=== PATIENT | male | born 1990 | race Caucasian/White ===

== ENCOUNTER 2017-05-29 19:30 | Emergency (ER) | payer MEDICAID ==
[2017-05-29] MEDS ORDERED: SODIUM CHLORIDE 0.9% 1,000 ML IV ONE (20:24)
[2017-05-29] MEDS ORDERED: ASPIRIN CHEW 81 MG TABLET PO STA (20:24)
[2017-05-29] MEDS ORDERED: ASPIRIN CHEW 81 MG TABLET ONE (20:31)
[2017-05-29 20:36] LABS: BASOPHILS % (AUTO) 0.3 %; EOSINOPHILS # (AUTO) 0.1 10^3/uL (0.0-0.7); EOSINOPHILS % (AUTO) 1.3 %; HCT - HEMATOCRIT 48.9 % (42.0-52.0); HGB - HEMOGLOBIN 16.5 g/dL (14.0-18.0); LYMPHOCYTES # (AUTO) 3.7 10^3/uL (1.5-3.5); LYMPHOCYTES % (AUTO) 41.9 %; MEAN CORPUSCULAR HEMOGLOBIN 30.1 pg (27.0-31.0); MEAN CORPUSCULAR HGB CONC 33.8 g/dL (32.0-36.0); MEAN CORPUSCULAR VOLUME 89.3 fL (80.0-94.0); MONOCYTES # (AUTO) 0.5 10^3/uL (0.0-1.0); MONOCYTES % (AUTO) 5.4 %; NEUTROPHILS # (AUTO) 4.5 10^3/uL (1.5-6.6); NEUTROPHILS % (AUTO) 51.1 %; NUCLEATED RED BLOOD CELLS AUTO 0.1 /100WBC; RED BLOOD COUNT 5.47 10^6/uL (4.70-6.10); UNCORRECTED WHITE BLOOD COUNT 8.9 x10^3/uL; WHITE BLOOD COUNT 8.9 x10^3/uL (4.8-10.8)
--- NOTE | 2017-05-29 20:39 | XRAY Preliminary Report ---
Exam: XR CHEST 2 VIEW PA/LAT IMPRESSION: Normal two-view chest radiograph. [facility] SITE ID: [id number]
--- NOTE | 2017-05-29 20:42 | XRAY Report ---
EXAM: CHEST RADIOGRAPHY EXAM DATE: 05/29/2017 08:21 PM. CLINICAL HISTORY: Chest pain. COMPARISON: None. TECHNIQUE: 2 views. FINDINGS: Lungs/Pleura: No focal opacities are evident. No pleural effusion or pneumothorax. Mediastinum: Normal cardiomediastinal contour. Other: The bones are normal. IMPRESSION: Normal two-view chest radiograph. [facility] Referring Provider Line: [phone] SITE ID: [id number]
[2017-05-29 20:46] LABS: CALCIUM 9.4 mg/dL (8.5-10.3); CREATININE 1.1 mg/dL (0.6-1.2); POTASSIUM 3.7 mmol/L (3.5-5.0); PT - PROTHROMBIN TIME 10.8 secs (9.9-12.6)
[2017-05-29 20:54] LABS: D-DIMER < 200.0 ng/mL (200.0-255.0)
[2017-05-29 21:00] LABS: PARTIAL THROMBOPLASTIN TIME 29.8 secs (24.9-33.3)
--- NOTE | 2017-05-29 22:10 | CT Preliminary Report ---
Exam: CT HEAD W/O IMPRESSION: No acute or focal intracranial abnormality. [facility] SITE ID: [id number]
--- NOTE | 2017-05-29 22:12 | CT Report ---
EXAM: CT HEAD EXAM DATE: 05/29/2017 09:47 PM. CLINICAL HISTORY: Left sided arm and leg tingling. COMPARISON: None. TECHNIQUE: Multiaxial CT images were obtained from the foramen magnum to the vertex. Reformats: Coron al. IV contrast: None. In accordance with CT protocol optimization, one or more of the following dose reduction techniques w ere utilized for this exam: automated exposure control, adjustment of mA and/or KV based on patient s ize, or use of iterative reconstructive technique. FINDINGS: Parenchyma: No intraparenchymal hemorrhage. No evidence of mass, midline shift, or CT findings of inf arction. Salazar-white differentiation is distinct. Extraaxial Spaces: Normal for age. No subdural or epidural collections identified. Ventricles: Normal in size and position. Sinuses and Orbits: Imaged paranasal sinuses, orbits, and mastoids show no significant abnormality. Bones: No evidence of fracture or calvarial defect. Other: None. IMPRESSION: No acute or focal intracranial abnormality. [facility] Referring Provider Line: [phone] SITE ID: [id number]
--- NOTE | 2017-05-29 22:58 | ED Physician Documentation ---
History of Present Illness - Stated complaint Stated Complaint: CHEST PX - Chief complaint Chief Complaint: Cardiac - History obtained from History obtained from: Patient (pt is here for evaluation of chest pain, shortness of breath and left sided weakness. he states that it started approx 45 min to 1 hour prior to arrival. states that he has had pericarditis in the past, and this feels similar to that. he states that he is also short of breath. he also states that his chest pain has improved somewhat from when it started but his left side is not tingling and numb.) Review of Systems Constitutional: denies: Fever, Chills Nose: denies: Congestion, Sinus pressure / pain Throat: denies: Sore throat Cardiac: reports: Chest pain / pressure. denies: Palpitations, Pedal edema Respiratory: reports: Dyspnea. denies: Cough, Hemoptysis, Wheezing GI: denies: Nausea, Vomiting : denies: Frequency Skin: denies: Rash, Lesions Musculoskeletal: denies: Extremity pain, Extremity swelling, Joint swelling Neurologic: reports: Focal weakness (left side of face, left arm and left leg), Numbness (left side of face, left arm and left leg.). denies: Syncope, Altered mental status, Headache, Head injury, LOC PD PAST MEDICAL HISTORY - Past Medical History Past Medical History: Yes Other Past Medical History: Pericarditis 03/2017 - Past Surgical History Past Surgical History: No - Present Medications Home Medications: Ambulatory Orders Medication Instructions Recorded Confirmed No Known Home Medications [No 05/29/17 05/29/17 Known Home Medications] - Allergies Allergies/Adverse Reactions: Allergies Allergy/AdvReac Type Severity Reaction Status Date / Time No Known Drug Allergies Allergy Verified 05/29/17 19:37 - Social History Does the pt smoke?: No Smoking Status: Never smoker Does the pt drink ETOH?: Yes Does the pt have substance abuse?: No - POLST Patient has POLST: No PD ED PE NORMAL - Vitals Vital signs reviewed: Yes - General General: Alert and oriented X 3, No acute distress, Well developed/nourished - HEENT HEENT: Atraumatic, Moist mucous membranes - Neck Neck: No bony TTP - Cardiac Cardiac: RRR, No murmur, No gallop, No rub - Respiratory Respiratory: No respiratory distress - Abdomen Abdomen: Normal bowel sounds, Soft, Non tender, Non distended - Derm Derm: Normal color, Warm and dry, No rash - Extremities Extremities: No deformity, No tenderness to palpate, No edema - Neuro Neuro: Alert and oriented X 3, transformation consultant 2-12 intact, No motor deficit (full strength 5/5 UE and LE bilateral ), Normal speech. No: No sensory deficit (reports decreased senstion to light touch to his left arm from top of shoulder to hand in all areas, in his left leg from the greater troch to the toes in all areas and on the left side of his face. ) Eye Opening: Spontaneous Motor: Obeys Commands Verbal: Oriented GCS Score: 15 - Psych Psych: Normal mood, Normal affect Results - Vitals Vitals: Vital Signs - 24 hr 05/29/17 05/29/17 05/29/17 19:34 19:42 20:12 Temperature 35.9 C L Heart Rate 74 81 73 Respiratory 24 26 H 20 Rate Blood Pressure 154/95 H 137/85 H 132/86 H O2 Saturation 100 100 100 05/29/17 05/29/17 05/29/17 20:14 21:03 21:32 Temperature 36.4 C L Heart Rate 58 L 90 Respiratory 17 18 Rate Blood Pressure 129/73 119/64 O2 Saturation 99 100 05/29/17 05/29/17 22:06 22:35 Temperature Heart Rate 75 53 L Respiratory 18 18 Rate Blood Pressure 124/72 119/74 O2 Saturation 98 97 Oxygen O2 Source Room air - EKG (time done) 1935 Rate: Rate (enter#) Rhythm: NSR [place]: Normal Intervals: Normal VA QRS: Normal Ischemia: ST elevation c/w repol, Other (early repol ). No: Q waves - Labs Labs: Laboratory Tests 05/29/17 05/29/17 05/29/17 19:40 19:40 19:40 WBC 8.9 RBC 5.47 Hgb 16.5 Hct 48.9 MCV 89.3 MCH 30.1 MCHC 33.8 RDW 13.0 Plt Count 219 MPV 11.0 Neut # 4.5 Lymph # 3.7 H Harding # 0.5 Eos # 0.1 Baso # 0.0 Absolute Nucleated RBC 0.01 Nucleated RBC % 0.1 ESR 1 PT 10.8 INR 1.0 APTT 29.8 D-Dimer < 200.0 L Sodium Potassium Chloride Carbon Dioxide Anion Gap BUN Creatinine Estimated GFR (MDRD) Glucose Calcium Troponin I C-Reactive Protein 05/29/17 05/29/17 05/29/17 19:40 19:40 22:25 WBC RBC Hgb Hct MCV MCH MCHC RDW Plt Count MPV Neut # Lymph # [place] # Eos # Baso # Absolute Nucleated RBC Nucleated RBC % ESR PT INR APTT D-Dimer Sodium 136 Potassium 3.7 Chloride 102 Carbon Dioxide 27 Anion Gap 7.0 BUN 10 Creatinine 1.1 Estimated GFR (MDRD) 82 L Glucose 102 H Calcium 9.4 Troponin I < 0.04 < 0.04 C-Reactive Protein 1.5 H - Rads (name of study) CXR Radiology: Final report received Head CT Radiology: Final report received PD MEDICAL DECISION MAKING - ED course Complexity details: d/w patient ED course: pt with hx of pericarditis and finished treatment 3 weeks ago. labs and ECG and PE not C/W pericarditis. has the left sided symptoms and normal head CT. doubt this is a CVA because of his presentation, and his exam. His tingling does not fit any specific pattern because of where it starts on his arm and leg. he states that he does have "nerve" problems and he told me that his chiropractor told him "if you get one more concussion you will be paralyzed" We discussed his symptoms. we talked about NSAID's. Informed him that he needed to contact his primary care provider to discuss a consult to see a neurologist if his symptoms continue. Departure - Departure Disposition: 01 Home, Self Care Clinical Impression: Atypical chest pain, Paresthesias/numbness Condition: Good Instructions: ED Paraesthesias, ED Chest Pain Atypical Unkn Cause Follow-Up: primary, care provider [Other] Comments: recommend that you contact your primary care provider to discuss a consult to see neurology if your symptoms so not improve. Return to the ER for any new or worsening symptoms.
[2017-05-29 23:23] VITALS: BP 124/56
== END 2017-05-29 23:23 | disposition home or self-care (01) ==
LOC: ED 19:30
DX: R07.89 Other chest pain (principal); R20.0 Anesthesia of skin
CPT/HCPCS: 36415; 70450; 71020; 80048; 84484; 85025; 85379; 85610; 85651; 85730; 86140; 93005; 96360; 99284; A9270

== ENCOUNTER 2017-06-12 14:28 | Outpatient (CLI) | payer MEDICAID | END 2017-06-12 14:29 | disposition critical access hospital (66) | LOC: EMS 14:28 | PROVIDERS: ATTEND Surgery | DX: R45.851 Suicidal ideations (principal) | CPT/HCPCS: A0425; A0429 ==

== ENCOUNTER 2017-06-12 14:45 | Emergency (ER) | payer MEDICAID ==
[2017-06-12 14:52] VITALS: BP 163/94
[2017-06-12 15:16] LABS: HCT - HEMATOCRIT 50.3 % (42.0-52.0); MEAN CORPUSCULAR HGB CONC 33.9 g/dL (32.0-36.0); MEAN CORPUSCULAR VOLUME 88.5 fL (80.0-94.0); MEAN PLATELET VOLUME 9.9 fL (7.4-11.4); RED BLOOD COUNT 5.68 10^6/uL (4.70-6.10); RED CELL DISTRIBUTION WIDTH 12.9 % (12.0-15.0)
--- NOTE | 2017-06-12 15:18 | ED Physician Documentation ---
PD HPI MHE - Stated complaint Stated Complaint: MHE - Chief complaint Chief Complaint: MHE - History obtained from History obtained from: Patient, Family, EMS - History of Present Illness Primary symptom: Other (27-year-old gentleman with long history of depression, suicidal attempts including a serious one in 2010. We are approaching the two- year anniversary of his infant son's of SIDS and he was telling his family today that he loved them and then disappeared. He admits to suicidal ideation but no current plan. He has been drinking today.) Review of Systems Ten Systems: 10 systems reviewed and negative Constitutional: denies: Fever, Chills Ears: reports: Reviewed and negative Nose: reports: Reviewed and negative Throat: reports: Reviewed and negative PD PAST MEDICAL HISTORY - Past Medical History Cardiovascular: Other Psych: Depression Musculoskeletal: Other (chronic neck pain) Other Past Medical History: Feet pain, and pericaritis - Past Surgical History Past Surgical History: No - Present Medications Home Medications: Ambulatory Orders Medication Instructions Recorded Confirmed Aspirin 325 mg .ROUTE Q6HR 06/12/17 06/12/17 Cyclobenzaprine [Flexeril] 10 mg pe PO DAILY 06/12/17 06/12/17 Ibuprofen 1,200 mg pe PO Q6HR 06/12/17 06/12/17 - Allergies Allergies/Adverse Reactions: Allergies Allergy/AdvReac Type Severity Reaction Status Date / Time No Known Drug Allergies Allergy Verified 06/12/17 14:52 - Social History Does the pt smoke?: No Smoking Status: Never smoker Does the pt drink ETOH?: Yes Does the pt have substance abuse?: No - Family History Family history: reports: Non contributory - POLST Patient has POLST: No PD ED PE NORMAL - Vitals Vital signs reviewed: Yes - General General: Alert and oriented X 3, Other (Slightly slow to answer questions but coherent) - HEENT HEENT: PERRL, EOMI - Neck Neck: Supple, no meningeal sign, No bony TTP - Cardiac Cardiac: RRR, No murmur - Respiratory Respiratory: No respiratory distress, Clear bilaterally - Abdomen Abdomen: Normal bowel sounds, Soft, Non tender - Back Back: No CVA TTP, No spinal TTP - Derm Derm: Normal color, Warm and dry, No rash - Extremities Extremities: No edema, No calf tenderness / cord - Neuro Neuro: Alert and oriented X 3, Normal speech Eye Opening: Spontaneous Motor: Obeys Commands Verbal: Oriented GCS Score: 15 - Psych Psych: Other (Depressed mood, active suicidal ideation, no homicidal ideation or hallucinations.) Results - Vitals Vitals: Vital Signs - 24 hr 06/12/17 14:47 Temperature 36.4 C L Heart Rate 99 Respiratory 18 Rate Blood Pressure 163/94 H O2 Saturation 96 Oxygen O2 Source Room air - Labs Labs: Laboratory Tests 06/12/17 06/12/17 06/12/17 15:00 15:09 15:09 WBC 8.0 RBC 5.68 Hgb 17.0 Hct 50.3 MCV 88.5 MCH 30.0 MCHC 33.9 RDW 12.9 Plt Count 224 MPV 9.9 Sodium 139 Potassium 3.3 L Chloride 105 Carbon Dioxide 24 Anion Gap 10.0 BUN 11 Creatinine 1.0 Estimated GFR (MDRD) 91 Glucose 113 H Calcium 9.4 Total Bilirubin 1.1 H AST 30 ALT 38 Alkaline Phosphatase 92 Total Protein 8.4 H Albumin 4.7 Globulin 3.7 Albumin/Globulin Ratio 1.3 Lipase 16 L Salicylates < 6.0 Urine Opiates Screen NEGATIVE Ur Oxycodone Screen NEGATIVE Urine Methadone Screen NEGATIVE Ur Propoxyphene Screen NEGATIVE Acetaminophen < 10 L Ur Barbiturates Screen NEGATIVE Ur Tricyclics Screen NEGATIVE Ur Phencyclidine Scrn NEGATIVE Ur Amphetamine Screen NEGATIVE U Methamphetamines Scrn NEGATIVE U Benzodiazepines Scrn NEGATIVE Urine Cocaine Screen NEGATIVE U Cannabinoids Screen NEGATIVE Ethyl Alcohol 105.6 PD MEDICAL DECISION MAKING - ED course ED course: 27-year-old gentleman mildly intoxicated with vague suicidal ideation without plan. Social work could not evaluate today because of the timing, they were off shift before he was clinically sober. He was encouraged to stay overnight for evaluation in the morning, however he demanded to leave and his mom came and picked them up. She was okay with him leaving. He did sign AGAINST MEDICAL ADVICE and mom signed the form as well. Departure - Departure Disposition: 07 Against Medical Advice Clinical Impression: Depression Qualifiers: Depression Type: major depressive disorder Major depression recurrence: recurrent Active/Remission status: currently active Major depression episode severity: moderate Qualified Code(s): F33.1 - Major depressive disorder, recurrent, moderate
[2017-06-12 15:31] LABS: ALBUMIN/GLOBULIN RATIO 1.3 (1.0-2.2); BILIRUBIN,TOTAL 1.1 mg/dL (0.2-1.0); BUN - BLOOD UREA NITROGEN 11 mg/dL (6-20); CALCIUM 9.4 mg/dL (8.5-10.3); CARBON DIOXIDE - CO2 24 mmol/L (21-32); CHLORIDE 105 mmol/L (101-111); GFR - MDRD 91 (>89); GLUCOSE 113 mg/dL (70-100); LIPASE 16 U/L (22-51); POTASSIUM 3.3 mmol/L (3.5-5.0); SALICYLATE < 6.0 mg/dL; SODIUM 139 mmol/L (135-145); TOTAL PROTEIN 8.4 g/dL (6.7-8.2)
[2017-06-12 15:32] LABS: ACETAMINOPHEN < 10 ug/mL (10-30)
== END 2017-06-12 17:49 | disposition left against medical advice (07) ==
LOC: EDUNIT# → ED 14:45
DX: F33.1 Major depressive disorder, recurrent, moderate (principal); R45.851 Suicidal ideations; F10.129 Alcohol abuse with intoxication, unspecified; Y90.5 Blood alcohol level of 100-119 mg/100 ml
CPT/HCPCS: 36415; 80053; 80306; 80307; 80320; 80329; 83690; 99283

== ENCOUNTER 2017-06-22 10:12 | Outpatient (CLI) | payer MEDICAID ==
[2017-06-22 14:21] LABS: BASOPHILS % (AUTO) 0.4 %; EOSINOPHILS # (AUTO) 0.2 10^3/uL (0.0-0.7); EOSINOPHILS % (AUTO) 3.3 %; HCT - HEMATOCRIT 48.4 % (42.0-52.0); HGB - HEMOGLOBIN 16.4 g/dL (14.0-18.0); LYMPHOCYTES # (AUTO) 2.2 10^3/uL (1.5-3.5); LYMPHOCYTES % (AUTO) 33.4 %; MEAN CORPUSCULAR HEMOGLOBIN 30.3 pg (27.0-31.0); MEAN CORPUSCULAR HGB CONC 33.8 g/dL (32.0-36.0); MEAN CORPUSCULAR VOLUME 89.8 fL (80.0-94.0); MEAN PLATELET VOLUME 10.6 fL (7.4-11.4); MONOCYTES # (AUTO) 0.3 10^3/uL (0.0-1.0); MONOCYTES % (AUTO) 5.1 %; NEUTROPHILS # (AUTO) 3.9 10^3/uL (1.5-6.6); NEUTROPHILS % (AUTO) 57.8 %; RED BLOOD COUNT 5.39 10^6/uL (4.70-6.10); UNCORRECTED WHITE BLOOD COUNT 6.7 x10^3/uL; WHITE BLOOD COUNT 6.7 x10^3/uL (4.8-10.8)
[2017-06-22 14:36] LABS: HEMOGLOBIN A1C 0.59 g/dL
[2017-06-22 14:41] LABS: ALBUMIN/GLOBULIN RATIO 1.4 (1.0-2.2); BILIRUBIN,TOTAL 1.3 mg/dL (0.2-1.0); BUN - BLOOD UREA NITROGEN 11 mg/dL (6-20); CALCIUM 9.6 mg/dL (8.5-10.3); CARBON DIOXIDE - CO2 26 mmol/L (21-32); CHLORIDE 105 mmol/L (101-111); CHOLESTEROL 204 mg/dL; GFR - MDRD 91 (>89); GLUCOSE 94 mg/dL (70-100); HDL CHOLESTEROL 41 mg/dL; LDL/HDL RATIO 3.5 (<3.6); POTASSIUM 3.9 mmol/L (3.5-5.0); SODIUM 139 mmol/L (135-145); TOTAL PROTEIN 8.1 g/dL (6.7-8.2); TRIGLYCERIDES 101 mg/dL; VLDL CHOLESTEROL 20 mg/dL
== END 2017-06-22 23:59 ==
LOC: LAB.N 10:12
PROVIDERS: ATTEND Physician Assistant Medical
DX: E16.2 Hypoglycemia, unspecified (principal); R03.0 Elevated blood-pressure reading, without diagnosis of hypertension; I25.2 Old myocardial infarction; E78.70 Disorder of bile acid and cholesterol metabolism, unspecified; M54.5 Low back pain; R53.83 Other fatigue
CPT/HCPCS: 36415; 80053; 80061; 83036; 84443; 85025

== ENCOUNTER 2017-08-03 13:54 | Emergency (ER) | payer MEDICAID ==
[2017-08-03 14:13] VITALS: BP 148/87
== END 2017-08-03 15:38 | disposition left against medical advice (07) ==
LOC: ED 13:54
DX: Z53.21 Procedure and treatment not carried out due to patient leaving prior to being seen by health care provider (principal)

== ENCOUNTER 2017-08-19 12:00 | Outpatient (CLI) | payer MEDICAID ==
--- NOTE | 2017-08-19 15:58 | XRAY Report ---
TWO VIEW LUMBAR SPINE: 08/19/2017 CLINICAL INDICATION: Lumbar back pain. FINDINGS: AP, lateral views of the lumbar spine demonstrate normal height and alignment of the vertebral bodies. The disk spaces are preserved. The bowel gas pattern is normal. IMPRESSION: NORMAL LUMBAR SPINE. TD: 08/19/2017 15:57
== END 2017-08-19 12:01 | disposition home or self-care (01) ==
LOC: DI 12:00
PROVIDERS: ATTEND Physician Assistant Medical
DX: M54.5 Low back pain (principal)
CPT/HCPCS: 72100

== ENCOUNTER 2018-02-15 14:55 | Emergency (ER) | payer MEDICAID ==
[2018-02-15] MEDS ORDERED: DEXAMETHASONE 10 MG/ML VIAL PO STA (15:44)
[2018-02-15] MEDS ORDERED: KETOROLAC 60 MG/2 ML VIAL IM STA (15:45)
--- NOTE | 2018-02-15 16:05 | ED Physician Documentation ---
PD HPI BACK PAIN - Stated complaint Stated Complaint: LOWER BACK PX/BILAT LEG PX/RT TOE NUMBNESS - Chief complaint Chief Complaint: Back Pain - History obtained from History obtained from: Patient - History of Present Illness Timing - onset: How many weeks ago (1) Timing - duration: Weeks (1) Timing - details: Still present Location: Lower, Right Quality: Pain Associated symptoms: Numbness (right leg). No: Fever, Weakness, Incontinent of urine Worsened by: Movement, Lifting Similar symptoms before: No diagnosis - Additional information Additional information: The patient is a 27-year-old male who presents with lower back pain radiating down both legs, more on the right than the left. He reports numbness in his toes. He denies any specific injury. The pain has been waxing and waning for the past week. He denies fever or urinary incontinence. He denies history of similar symptoms in the past. Review of Systems Constitutional: denies: Fever Nose: denies: Congestion Respiratory: denies: Dyspnea GI: denies: Abdominal Pain, Nausea, Vomiting : denies: Dysuria, Incontinent Skin: denies: Rash Musculoskeletal: reports: Back pain. denies: Neck pain Neurologic: reports: Numbness (In his toes bilaterally.). denies: Focal weakness, Headache PD PAST MEDICAL HISTORY - Past Medical History Cardiovascular: Other Psych: Depression Musculoskeletal: Other - Past Surgical History Past Surgical History: No - Present Medications Home Medications: Ambulatory Orders Medication Instructions Recorded Confirmed Aspirin 325 mg .ROUTE Q6HR 06/12/17 06/12/17 Cyclobenzaprine [Flexeril] 10 mg pe PO DAILY 06/12/17 06/12/17 Ibuprofen 1,200 mg pe PO Q6HR 06/12/17 06/12/17 Cyclobenzaprine [Flexeril] 10 mg PO TID PRN #20 tablet 02/15/18 traMADol [Ultram] 50 mg PO Q4-6H #20 tablet 02/15/18 - Allergies Allergies/Adverse Reactions: Allergies Allergy/AdvReac Type Severity Reaction Status Date / Time No Known Drug Allergies Allergy Verified 06/12/17 14:52 - Social History Does the pt smoke?: No Smoking Status: Never smoker Does the pt drink ETOH?: Yes Does the pt have substance abuse?: No - POLST Patient has POLST: No PD ED PE NORMAL - Vitals Vital signs reviewed: Yes (initially hypertensive.) - General General: Alert and oriented X 3, Well developed/nourished - HEENT HEENT: Atraumatic - Neck Neck: No bony TTP - Cardiac Cardiac: RRR - Respiratory Respiratory: No respiratory distress - Abdomen Abdomen: Soft, Non tender - Back Back: No CVA TTP, No spinal TTP, Other (Tenderness to palpation in the paralumbar musculature bilaterally. No tenderness to palpation along the spinous processes.) - Derm Derm: No rash - Extremities Extremities: No edema, No calf tenderness / cord, Other (Straight leg raise test is negative bilaterally.) - Neuro Neuro: Alert and oriented X 3, No motor deficit, No sensory deficit, Other (No sensory deficit is detected in the lower extremities. Deep tendon reflexes are 2+ and equal bilaterally at the patellar and Achilles tendons.) Results - Vitals Vitals: Oxygen O2 Source Room air PD MEDICAL DECISION MAKING - ED course Complexity details: reviewed results, re-evaluated patient, considered differential, d/w patient ED course: The patient's presentation is most consistent with acute lumbar strain. His presentation does not suggest epidural abscess, cauda equina syndrome, or spinal stenosis. Treatment in the emergency department included administration of ketorolac 60 mg IM and dexamethasone 10 mg orally. He is being discharged with prescriptions for Flexeril and for tramadol, 20 tablets. I discussed with him expected course of illness, symptomatic treatment and outpatient follow-up, as well as potentially worrisome signs or symptoms that should prompt reevaluation in the emergency department. - Sepsis Event Vital Signs: Oxygen O2 Source Room air Departure - Departure Disposition: 01 Home, Self Care Clinical Impression: Back pain Qualifiers: Back pain location: low back pain Chronicity: acute Back pain laterality: right Sciatica presence: without sciatica Qualified Code(s): M54.5 - Low back pain Condition: Stable Instructions: ED Low Back Pain Injury Follow-Up: Cecil Mitchell PA-C [Primary Care Provider] - Prescriptions: Cyclobenzaprine [Flexeril] 10 mg PO TID PRN #20 tablet PRN Reason: Spasms traMADol [Ultram] 50 mg PO Q4-6H #20 tablet Comments: Apply ice pack to your lower back intermittently for the next 3 or 4 days. You can use Flexeril as prescribed if needed for muscle spasms. You can use ibuprofen, up to 800 mg 3 times daily for its anti-inflammatory effect. You can use tramadol as prescribed if needed for pain. Let pain be your guide to activity level. Follow up with your primary physician within 2 weeks. Call to schedule an appointment. Return to the emergency department if you develop increasing back pain, urinary incontinence, increasing numbness or weakness, or otherwise worsening symptoms. Discharge Date/Time: 02/15/18 16:16
[2018-02-15 16:17] VITALS: BP 130/96
== END 2018-02-15 16:16 | disposition home or self-care (01) ==
LOC: ED 14:55
DX: M54.5 Low back pain (principal); Z79.82 Long term (current) use of aspirin
CPT/HCPCS: 99283

== ENCOUNTER 2018-06-09 15:37 | Outpatient (CLI) | payer MEDICAID ==
--- NOTE | 2018-06-09 17:00 | MRI Report ---
Reason: KNEE PAIN,LEFT,CHRONIC Procedure Date: 06/09/2018 Accession Number: [id number] / [id number] Procedure: MRI - Knee LT W/O CPT Code: FULL RESULT: EXAM: LEFT KNEE MRI WITHOUT CONTRAST EXAM DATE: 06/09/2018 04:23 PM. CLINICAL HISTORY: Chronic left knee pain. Snowboarding accident 2016. COMPARISON: KNEE 3 VIEW LT 05/31/2018 12:27 PM. TECHNIQUE: Multiplanar, multisequence T1-weighted and fluid-sensitive sequences of the knee without contrast. Other: None. FINDINGS: Bones: No fractures or subluxations. No marrow edema. No bone lesions. Articular Cartilage: Unremarkable. Medial Meniscus: The medial meniscus is intact. Lateral Meniscus: The lateral meniscus is intact. Cruciate Ligaments: The anterior and posterior cruciate ligaments are intact. Collateral Ligaments: The medial collateral and lateral collateral ligamentous structures are intact. Tendons: The quadriceps, patellar, semimembranosus, and popliteus tendons are unremarkable. Musculature: No edema or fatty atrophy. Other: Small joint fluid lateral patellar recess. No popliteal cyst. No loose bodies. The medial and lateral retinacula are intact. The subcutaneous tissues and fat pads are unremarkable. IMPRESSION: No MRI abnormalities in the knee. [facility] MUSCULOSKELETAL RADIOLOGY SECTION
== END 2018-06-09 15:38 | disposition home or self-care (01) ==
LOC: DI 15:37
PROVIDERS: ATTEND Physician Assistant Medical
DX: M25.562 Pain in left knee (principal)

== ENCOUNTER 2018-06-14 11:54 | Outpatient (CLI) | payer MEDICAID | END 2018-06-14 11:55 | disposition critical access hospital (66) | LOC: EMS 11:54 | PROVIDERS: ATTEND Surgery | DX: M54.5 Low back pain (principal) | CPT/HCPCS: A0425; A0429; A0999 ==

== ENCOUNTER 2018-06-14 12:10 | Emergency (ER) | payer MEDICAID ==
--- NOTE | 2018-06-14 12:58 | ED Physician Documentation ---
PD HPI BACK PAIN - Stated complaint Stated Complaint: Back pain - Chief complaint Chief Complaint: Back Pain - History obtained from History obtained from: Patient - History of Present Illness Timing - onset: Today Timing - duration: Hours Timing - details: Abrupt onset, Still present Location: Mid, Lower, Right Quality: Pain, Spasm. No: Aching, Throbbing Associated symptoms: No: Fever, Weakness, Numbness Worsened by: Movement. No: Twisting, Palpation Contributing factors: No: Lifting, Twisting Similar symptoms before: No diagnosis Recently seen: Clinic (He has been to his primary care recently for recurrent upper abdominal pain which radiates into the back. He was started on omeprazole a week ago and had an upper abdominal ultrasound scheduled which was planned for this afternoon. He is also had chronic recurrent low back pain which has been hurting more with range of motion over the last week or so. Today he had a significant worsening of the upper thoracic pain area which was unrelenting and not improved with rest. It was different than prior similar pains.) Review of Systems Constitutional: denies: Fever, Chills Nose: denies: Rhinorrhea / runny nose, Congestion Throat: denies: Sore throat Respiratory: denies: Cough GI: reports: Abdominal Pain (upper abd intermittently, worse after eating.), Nausea. denies: Vomiting, Constipation, Diarrhea : denies: Dysuria, Frequency Skin: denies: Rash, Lesions Musculoskeletal: reports: Back pain Neurologic: denies: Generalized weakness, Focal weakness, Numbness, Near syncope PD PAST MEDICAL HISTORY - Past Medical History Cardiovascular: Other Respiratory: None Neuro: None Endocrine/Autoimmune: None Psych: Depression Musculoskeletal: Chronic back pain, Other - Past Surgical History Past Surgical History: No - Present Medications Home Medications: Ambulatory Orders Medication Instructions Recorded Confirmed Aspirin 325 mg .ROUTE Q6HR 06/12/17 06/12/17 Cyclobenzaprine [Flexeril] 10 mg pe PO DAILY 06/12/17 06/12/17 Ibuprofen 1,200 mg pe PO Q6HR 06/12/17 06/12/17 Cyclobenzaprine [Flexeril] 10 mg PO TID PRN #20 tablet 02/15/18 traMADol [Ultram] 50 mg PO Q4-6H #20 tablet 02/15/18 Hydrocodone/Acetaminophen [[place] 1 each PO Q6H PRN #20 tablet 06/14/18 5-325 Tablet] Ondansetron HCl [Zofran] 4 mg PO Q6H PRN #30 tablet 06/14/18 Sucralfate [Carafate] 1 gm PO TID #20 tablet 06/14/18 - Allergies Allergies/Adverse Reactions: Allergies Allergy/AdvReac Type Severity Reaction Status Date / Time No Known Drug Allergies Allergy Verified 06/14/18 12:13 - Social History Does the pt smoke?: No Smoking Status: Never smoker Does the pt drink ETOH?: Yes Does the pt have substance abuse?: No - POLST Patient has POLST: No PD ED PE NORMAL - Vitals Vital signs reviewed: Yes - General General: Alert and oriented X 3, Well developed/nourished, Other (appears in pain) - HEENT HEENT: Pharynx benign - Neck Neck: Supple, no meningeal sign, No adenopathy - Cardiac Cardiac: RRR, No murmur - Respiratory Respiratory: Clear bilaterally - Abdomen Abdomen: Normal bowel sounds, Soft, Non distended, No organomegaly, Other (some tenderness upper abd without guarding. No percussion nor rebound. ) - Male Male : Deferred - Rectal Rectal: Deferred - Back Back: No CVA TTP (no muscular tenderness. Back pain worse with ROM, somewhat guarded motion lying on cart. ), No spinal TTP - Derm Derm: Normal color, Warm and dry - Extremities Extremities: No tenderness to palpate, Normal ROM s pain - Neuro Neuro: Alert and oriented X 3, No motor deficit, Normal speech Eye Opening: Spontaneous Motor: Obeys Commands Verbal: Oriented GCS Score: 15 Results - Vitals Vitals: Vital Signs - 24 hr 06/14/18 12:13 Temperature 36.6 C Heart Rate 90 Respiratory 16 Rate Blood Pressure 128/64 O2 Saturation 95 Oxygen O2 Source Room air - Labs Labs: Laboratory Tests 06/14/18 06/14/18 13:25 13:25 WBC 7.0 RBC 5.53 Hgb 17.1 Hct 49.8 MCV 90.0 MCH 30.9 MCHC 34.3 RDW 13.5 Plt Count 219 MPV 10.2 Neut # (Auto) 3.7 Lymph # (Auto) 2.6 [place] # (Auto) 0.5 Eos # (Auto) 0.1 Baso # (Auto) 0.0 Absolute Nucleated RBC 0.00 Nucleated RBC % 0.0 Sodium 136 Potassium 3.5 Chloride 106 Carbon Dioxide 25 Anion Gap 5.0 L BUN 8 Creatinine 1.1 Estimated GFR (MDRD) 81 L Glucose 91 Calcium 9.1 Total Bilirubin 0.7 AST 37 ALT 57 Alkaline Phosphatase 95 Total Protein 8.3 H Albumin 4.6 Globulin 3.7 Albumin/Globulin Ratio 1.2 Lipase 18 L - Rads (name of study) abd/pelvic CT Radiology: Prelim report reviewed (no acute abnormality. ), EMP read contemporaneously, See rad report PD MEDICAL DECISION MAKING - ED course Complexity details: reviewed results (Normal CT without any signs of gallbladder process. Blood tests show normal liver and pancreatic enzymes. There are no kidney stones on CT. He may still have some gastritis or duodenitis based on his prior symptoms. The current pain sounds more musculoskeletal of the low back.), re-evaluated patient, considered differential (Sounds like he may have had some gallbladder spasm or pancreatic or liver problems. Also consider a kidney stone. We can do the CT scan to evaluate for these. He was scheduled for an ultrasound later today to evaluate gallbladder. I think this will be incorporated in the CT adequately enough. We will get him some pain medicine as well. He may have muscular back pain as well given some guarded range of motion.), d/w patient Departure - Departure Disposition: 01 Home, Self Care Clinical Impression: Upper abdominal pain Low back pain Qualifiers: Chronicity: acute Back pain laterality: unspecified Sciatica presence: without sciatica Qualified Code(s): M54.5 - Low back pain Condition: Stable Record reviewed to determine appropriate education?: Yes Instructions: ED Spasm Back No Trauma Follow-Up: Cecil Mitchell PA-C [Primary Care Provider] - Prescriptions: Hydrocodone/Acetaminophen [[place] 5-325 Tablet] 1 each PO Q6H PRN #20 tablet PRN Reason: Pain Ondansetron HCl [Zofran] 4 mg PO Q6H PRN #30 tablet PRN Reason: Nausea / Vomiting Sucralfate [Carafate] 1 gm PO TID #20 tablet Comments: Drink lots of fluids. Continue the recently prescribed omeprazole. Add sucralfate to coat the stomach 3 times a day for the next week. Lamar food. Add Tylenol or hydrocodone if needed for pain. He can use this for the back pain as well. I think the back pain you are having may be somewhat separate and musculoskeletal. The CT scan did not show any acute organ abnormalities. However this would not really show stomach lining problems such as gastritis. I think the above medications will help with that. There is no signs of kidney stones gallstones pancreas or liver problems.
[2018-06-14] MEDS ORDERED: MORPHINE 2 MG/ML CARPUJECT IVP STA (13:16)
[2018-06-14] MEDS ORDERED: KETOROLAC 60 MG/2 ML VIAL IVP STA (13:16)
[2018-06-14 13:31] LABS: BASOPHILS % (AUTO) 0.6 %; EOSINOPHILS # (AUTO) 0.1 10^3/uL (0.0-0.7); HGB - HEMOGLOBIN 17.1 g/dL (14.0-18.0); LYMPHOCYTES # (AUTO) 2.6 10^3/uL (1.5-3.5); LYMPHOCYTES % (AUTO) 37.6 %; MEAN CORPUSCULAR HEMOGLOBIN 30.9 pg (27.0-31.0); MEAN CORPUSCULAR HGB CONC 34.3 g/dL (32.0-36.0); MEAN PLATELET VOLUME 10.2 fL (7.4-11.4); MONOCYTES # (AUTO) 0.5 10^3/uL (0.0-1.0); MONOCYTES % (AUTO) 6.7 %; NEUTROPHILS # (AUTO) 3.7 10^3/uL (1.5-6.6); NEUTROPHILS % (AUTO) 53.1 %; PLT - PLATELET COUNT 219 10^3/uL (130-450); RED BLOOD COUNT 5.53 10^6/uL (4.70-6.10); RED CELL DISTRIBUTION WIDTH 13.5 % (12.0-15.0)
[2018-06-14 13:44] LABS: ALBUMIN 4.6 g/dL (3.2-5.5); ALBUMIN/GLOBULIN RATIO 1.2 (1.0-2.2); BILIRUBIN,TOTAL 0.7 mg/dL (0.2-1.0); CALCIUM 9.1 mg/dL (8.5-10.3); CREATININE 1.1 mg/dL (0.6-1.2); TOTAL PROTEIN 8.3 g/dL (6.7-8.2)
[2018-06-14] MEDS ORDERED: IOVERSOL 320 100 ML VIAL IVP ONE ×2 (14:14→14:24)
--- NOTE | 2018-06-14 14:48 | CT Report ---
Reason: back and abd pain Procedure Date: 06/14/2018 Accession Number: [id number] / [id number] Procedure: CT - Abdomen/Pelvis W/ CPT Code: FULL RESULT: EXAM: CT ABDOMEN AND PELVIS EXAM DATE: 06/14/2018 02:25 PM. CLINICAL HISTORY: Back and abd pain. COMPARISONS: None. TECHNIQUE: Routine helical CT imaging was performed through the abdomen and pelvis. IV contrast: [id number] 90ML. Enteric contrast: No. Reconstructions: Coronal and sagittal. In accordance with CT protocol optimization, one or more of the following dose reduction techniques were utilized for this exam: automated exposure control, adjustment of mA and/or KV based on patient size, or use of iterative reconstructive technique. FINDINGS: Lung Bases: Unremarkable. Liver: Normal. Gallbladder/Bile Ducts: Unremarkable. Spleen: Normal. Pancreas: Normal. Adrenal Glands: Normal. Kidneys: Normal. No hydronephrosis. Peritoneal Cavity/Bowel: Normal caliber bowel without obstruction. No free fluid, free air or adenopathy. No masses or acute inflammatory process. The appendix is well visualized and normal. Pelvic Organs: The bladder and prostate gland are unremarkable. Vasculature: No aneurysms or other significant abnormality. Bones: No significant abnormality. Other: None. IMPRESSION: Normal abdomen and pelvis CT. RADIA
[2018-06-14] MEDS ORDERED: HYDROmorphone 1 MG/ML CARPUJECT IVP STA (15:14)
[2018-06-14] MEDS ORDERED: MAG HYDROX/AL HYDROX/SIMETH 30 ML UDC PO STA (15:15)
[2018-06-14 15:54] VITALS: BP 126/62
== END 2018-06-14 15:53 | disposition home or self-care (01) ==
LOC: EDUNIT# → ED 12:10
DX: R10.10 Upper abdominal pain, unspecified (principal); M54.5 Low back pain; Z79.82 Long term (current) use of aspirin
CPT/HCPCS: 36415; 74177; 80053; 83690; 85025; 96374; 96375; 99283; A9270; J1170; Q9967

== ENCOUNTER 2018-07-17 07:38 | Emergency (ER) | payer MEDICAID ==
[2018-07-17] MEDS ORDERED: LIDOCAINE PATCH 5% TOP STA (08:28)
[2018-07-17] MEDS ORDERED: HYDROcod/ACETAM 5/325 MG TABLET PO STA (08:28)
[2018-07-17] MEDS ORDERED: CYCLOBENZAPRINE 10 MG TABLET PO STA (08:28)
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
[2018-07-17 08:42] VITALS: BP 131/64
== END 2018-07-17 08:42 | disposition home or self-care (01) ==
LOC: ED 07:38
DX: M54.9 Dorsalgia, unspecified (principal); G89.29 Other chronic pain; K29.50 Unspecified chronic gastritis without bleeding
CPT/HCPCS: 99283; A9270

== ENCOUNTER 2018-08-03 16:31 | Emergency (ER) | payer MEDICAID ==
[2018-08-03] MEDS ORDERED: KETOROLAC 60 MG/2 ML VIAL IM STA (16:45)
[2018-08-03] MEDS ORDERED: CYCLOBENZAPRINE 10 MG TABLET PO STA (16:45)
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
[2018-08-03 18:11] VITALS: BP 128/79
== END 2018-08-03 18:11 | disposition home or self-care (01) ==
LOC: ED 16:31
DX: S16.1XXA Strain of muscle, fascia and tendon at neck level, initial encounter (principal); S39.012A Strain of muscle, fascia and tendon of lower back, initial encounter; V89.2XXA Person injured in unspecified motor-vehicle accident, traffic, initial encounter; Y92.481 Parking lot as the place of occurrence of the external cause
CPT/HCPCS: 72070; 72100; 72125; 96372; 99283; A9270

== ENCOUNTER 2018-08-26 16:31 | Outpatient (CLI) | payer MEDICAID ==
[2018-08-26] MEDS ORDERED: GADOBUTROL 10 MMOL/10 ML VIAL ONE (16:56)
[2018-08-26] MEDS ORDERED: GADOBUTROL 10 MMOL/10 ML VIAL IVP ONE (17:28)
--- NOTE | 2018-08-27 04:09 | MRI Report ---
Reason: BACK PAIN,LUMBAR WITH RADICULOPATHY Procedure Date: 08/26/2018 Accession Number: [id number] / [id number] Procedure: MRI - Lumbar Spine W/WO CPT Code: FULL RESULT: EXAM: MRI LUMBAR SPINE WITHOUT AND WITH CONTRAST EXAM DATE: 08/26/2018 05:42 PM. CLINICAL HISTORY: BACK PAIN,LUMBAR WITH RADICULOPATHY. COMPARISONS: LUMBAR SPINE 2 VIEW 08/03/2018 5:12 PM. TECHNIQUE: Multiplanar, multisequence T1-weighted and fluid-sensitive sequences of the lumbar spine from T12 to S1 before and after administration of intravenous contrast. Other: None. IV contrast: Gadavist 10 mL.. FINDINGS: Neurologic Structures: The conus terminates at T12-L1. The conus medullaris and cauda equina are unremarkable. Alignment: No scoliosis or spondylolisthesis. Bone Marrow: Five wfn-owh-qxhjlbo lumbar vertebral bodies are assumed. No gross fractures or bone lesions. No bone marrow replacement or abnormal enhancement. Disk Levels/Facets: T12-L1: Unremarkable. L1-L2: Unremarkable. L2-L3: Unremarkable. L3-L4: Unremarkable. L4-L5: Unremarkable. L5-S1: The disk is maintained in height and signal. There is no focal disk herniation. There is a minimal disk bulge. There is mild bilateral facet hypertrophy. There is no canal or foraminal stenosis. Spinal Canal: No enhancing masses within the spinal canal. No epidural abscess. Musculature: Normal. No edema, abnormal enhancement, or fatty atrophy. Other: The visualized retroperitoneum is unremarkable. IMPRESSION: 1. At L5-S1, there is a mild disk bulge and mild bilateral facet hypertrophy. No canal or foraminal stenosis. 2. Otherwise unremarkable MRI lumbar spine without and with contrast. 3. There is no focal lumbar disk herniation or evidence of nerve compression. Comment: The following findings are so common in adults without low back pain that while we report their presence, they must be interpreted with caution and in the context of the clinical situation. (Reference Divyak et al, Spine 2001) Prevalence of findings in patients without low back pain: Disk degeneration (any evidence): 92% Disk desiccation/T2 signal loss: 83% Disk height loss: 56% Disk bulge: 64% Disk protrusion: 32% Annular tear/high intensity zone: 38% RAD[facility]
== END 2018-08-26 16:32 | disposition home or self-care (01) ==
LOC: DI 16:31
PROVIDERS: ATTEND Physician Assistant Medical
DX: M51.17 Intervertebral disc disorders with radiculopathy, lumbosacral region (principal)
CPT/HCPCS: 72158; A9585

== ENCOUNTER 2018-12-01 06:25 | Emergency (ER) | payer MEDICAID ==
[2018-12-01 06:49] LABS: BASOPHILS % (AUTO) 0.7 %; EOSINOPHILS # (AUTO) 0.4 10^3/uL (0.0-0.7); EOSINOPHILS % (AUTO) 6.1 %; HGB - HEMOGLOBIN 16.1 g/dL (14.0-18.0); LYMPHOCYTES # (AUTO) 2.5 10^3/uL (1.5-3.5); LYMPHOCYTES % (AUTO) 36.4 %; MEAN CORPUSCULAR HEMOGLOBIN 30.9 pg (27.0-31.0); MEAN CORPUSCULAR HGB CONC 34.3 g/dL (32.0-36.0); MEAN CORPUSCULAR VOLUME 90.1 fL (80.0-94.0); MEAN PLATELET VOLUME 10.5 fL (7.4-11.4); MONOCYTES # (AUTO) 0.4 10^3/uL (0.0-1.0); MONOCYTES % (AUTO) 6.5 %; NEUTROPHILS # (AUTO) 3.4 10^3/uL (1.5-6.6); NEUTROPHILS % (AUTO) 50.3 %; PLT - PLATELET COUNT 199 10^3/uL (130-450); RED BLOOD COUNT 5.22 10^6/uL (4.70-6.10); RED CELL DISTRIBUTION WIDTH 13.1 % (12.0-15.0); WHITE BLOOD COUNT 6.8 x10^3/uL (4.8-10.8)
[2018-12-01] MEDS ORDERED: SODIUM CHLORIDE 0.9% 1,000 ML IV ONE (06:52)
[2018-12-01 07:02] LABS: ALBUMIN 4.4 g/dL (3.2-5.5); ALBUMIN/GLOBULIN RATIO 1.3 (1.0-2.2); BILIRUBIN,TOTAL 1.1 mg/dL (0.2-1.0); CALCIUM 9.2 mg/dL (8.5-10.3); TOTAL PROTEIN 7.8 g/dL (6.7-8.2)
[2018-12-01] MEDS ORDERED: ONDANSETRON ODT 4 MG TABLET TL STA (07:09)
--- NOTE | 2018-12-01 07:14 | ED Physician Documentation ---
PD HPI ABD PAIN - Stated complaint Stated Complaint: ABD PX, VOMITING - Chief complaint Chief Complaint: Abd Pain - History obtained from History obtained from: Patient - History of Present Illness Timing - onset: How many days ago (2) Timing - duration: Days Timing - details: Gradual onset, Still present Pain level max: 5 Pain level now: 4 Quality: Cramping Location: All over / everywhere Radiation: Other (none) Improved by: Other (nothing) Worsened by: Eating Associated symptoms: Nausea, Vomiting, Diarrhea (denies bloody stool. Stool is watery and loose. Denies blood in vomit). No: Fever, Hematemesis, Melena, Hematochezia Similar symptoms before: Has not had sx before Recently seen: Not recently seen - Additional information Additional information: Reports mom is at home with similar symptoms. Review of Systems Ten Systems: 10 systems reviewed and negative Constitutional: denies: Fever Cardiac: reports: Reviewed and negative Respiratory: reports: Reviewed and negative GI: reports: Abdominal Pain, Nausea, Vomiting, Diarrhea : reports: Reviewed and negative Skin: denies: Rash PD PAST MEDICAL HISTORY - Past Medical History Past Medical History: Yes Cardiovascular: Other Respiratory: None Neuro: None Endocrine/Autoimmune: None HEENT: None Psych: Depression, Post traumatic stress disorder Musculoskeletal: Chronic back pain, Other - Past Surgical History Past Surgical History: No - Present Medications Home Medications: Ambulatory Orders Medication Instructions Recorded Confirmed Sucralfate 0 gm PO TID 07/17/18 07/17/18 raNITIdine [Zantac] 150 mg PO BID #60 tablet 07/17/18 08/03/18 Gabapentin 300 mg PO TID 12/01/18 12/01/18 Ondansetron Odt [Zofran] 4 mg TL Q6H PRN #10 tablet 12/01/18 - Allergies Allergies/Adverse Reactions: Allergies Allergy/AdvReac Type Severity Reaction Status Date / Time No Known Drug Allergies Allergy Verified 12/01/18 06:32 - Social History Does the pt smoke?: No Smoking Status: Never smoker Does the pt drink ETOH?: Yes Does the pt have substance abuse?: No - Immunizations Immunizations are current?: Yes - POLST Patient has POLST: No PD ED PE NORMAL - Vitals Vital signs reviewed: Yes - General General: Alert and oriented X 3 - HEENT HEENT: Atraumatic, Moist mucous membranes - Neck Neck: Supple, no meningeal sign - Cardiac Cardiac: RRR - Respiratory Respiratory: No respiratory distress - Abdomen Abdomen: Soft, Non tender, Non distended - Male Male : Deferred - Rectal Rectal: Deferred - Derm Derm: Normal color, Warm and dry, No rash - Extremities Extremities: No edema - Neuro Neuro: Alert and oriented X 3 Eye Opening: Spontaneous Motor: Obeys Commands Verbal: Oriented GCS Score: 15 - Psych Psych: Normal mood, Normal affect Results - Vitals Vitals: Vital Signs - 24 hr 12/01/18 06:29 Temperature 36.2 C L Heart Rate 70 Respiratory 16 Rate Blood Pressure 134/82 H O2 Saturation 97 Oxygen O2 Source Room air - Labs Labs: Laboratory Tests 12/01/18 12/01/18 06:35 06:35 WBC 6.8 RBC 5.22 Hgb 16.1 Hct 47.1 MCV 90.1 MCH 30.9 MCHC 34.3 RDW 13.1 Plt Count 199 MPV 10.5 Neut # (Auto) 3.4 Lymph # (Auto) 2.5 [place] # (Auto) 0.4 Eos # (Auto) 0.4 Baso # (Auto) 0.0 Absolute Nucleated RBC 0.00 Nucleated RBC % 0.1 Sodium 139 Potassium 4.1 Chloride 108 Carbon Dioxide 21 Anion Gap 10.0 BUN 13 Creatinine 1.0 Estimated GFR (MDRD) 90 Glucose 109 H Calcium 9.2 Total Bilirubin 1.1 H AST 32 ALT 39 Alkaline Phosphatase 82 Total Protein 7.8 Albumin 4.4 Globulin 3.4 Albumin/Globulin Ratio 1.3 Lipase 26 normal labs PD MEDICAL DECISION MAKING - ED course Complexity details: reviewed results, re-evaluated patient, considered differential ED course: DDx includes gastritis, gastroenteritis, dysentery, colitis, pancreatitis, cholecystitis. Pt with nausea, vomiting, diarrhea and abdominal cramping for 2 days, mom with similar symptoms at home - no recent travel, hospitalizations/antibiotics or other exposure risks. Benign abdominal exam, normal labs, given IV fluids. Will also given zofran and PO challenge. Pt likely with viral gastroenteritis. Pt tolerating po appears comfortable after zofran. Continue supportive care at home. Pt stable for discharge. Departure - Departure Disposition: ED [place] Clinical Impression: Gastroenteritis Condition: Stable Record reviewed to determine appropriate education?: Yes Instructions: ED Gastroenteritis Viral Ch Follow-Up: Cecil Mitchell PA-C [Primary Care Provider] - As Needed Prescriptions: Ondansetron Odt [Zofran] 4 mg TL Q6H PRN #10 tablet PRN Reason: Nausea / Vomiting
[2018-12-01 08:18] VITALS: BP 122/71
== END 2018-12-01 08:23 | disposition left against medical advice (07) ==
LOC: ED 06:25
DX: K52.9 Noninfective gastroenteritis and colitis, unspecified (principal)
CPT/HCPCS: 36415; 80053; 83690; 85025; 96360; 99283; Q0162

== ENCOUNTER 2018-12-18 04:37 | Emergency (ER) | payer MEDICAID ==
[2018-12-18 04:44] VITALS: BP 144/102
[2018-12-18] MEDS ORDERED: KETOROLAC 60 MG/2 ML VIAL IM STA (04:52)
[2018-12-18] MEDS ORDERED: CHERRY SYRUP 10 ML UDC PO ONE (04:53)
[2018-12-18] MEDS ORDERED: DEXAMETHASONE 10 MG/ML VIAL PO STA (04:53)
--- NOTE | 2018-12-18 05:01 | ED Physician Documentation ---
PD HPI BACK PAIN - Stated complaint Stated Complaint: BK PX - Chief complaint Chief Complaint: Back Pain - History obtained from History obtained from: Patient - History of Present Illness Timing - onset: How many hours ago (2) Timing - details: Still present Location: Lower, Right Quality: Pain, Similar to prior episodes Associated symptoms: No: Fever, Weakness, Numbness, Incontinent of urine Worsened by: Movement Similar symptoms before: Diagnosis (History of chronic back pain.) - Additional information Additional information: The patient is a 28-year-old male resents with lower back pain radiating to his right hip and thigh. His pain started about 2 hours prior to arrival, awaking him from sleep. It is positional, being exacerbated by changes in position. He denies any recent traumatic injury. He denies fever, numbness or weakness, or urinary incontinence. Review of his medical records reveals he has been seen here 3 times in the past year with similar presentations. Review of Systems Constitutional: denies: Fever Nose: denies: Congestion Throat: denies: Sore throat Cardiac: denies: Chest pain / pressure Respiratory: denies: Dyspnea, Cough GI: denies: Abdominal Pain, Nausea, Vomiting : denies: Dysuria Skin: denies: Rash Musculoskeletal: reports: Back pain. denies: Neck pain Neurologic: denies: Focal weakness, Numbness, Headache PD PAST MEDICAL HISTORY - Past Medical History Past Medical History: Yes Cardiovascular: Other Respiratory: None Neuro: None Endocrine/Autoimmune: None HEENT: None Psych: Depression, Post traumatic stress disorder Musculoskeletal: Chronic back pain, Other - Past Surgical History Past Surgical History: No - Present Medications Home Medications: Ambulatory Orders Medication Instructions Recorded Confirmed Cyclobenzaprine [Flexeril] 10 mg PO TID PRN #20 tablet 12/18/18 Tramadol HCl 50 mg PO Q6HR PRN #12 tablet 12/18/18 - Allergies Allergies/Adverse Reactions: Allergies Allergy/AdvReac Type Severity Reaction Status Date / Time No Known Drug Allergies Allergy Verified 12/18/18 04:44 - Social History Does the pt smoke?: No Smoking Status: Never smoker Does the pt drink ETOH?: Yes Does the pt have substance abuse?: No - Immunizations Immunizations are current?: Yes - POLST Patient has POLST: No PD ED PE NORMAL - Vitals Vital signs reviewed: Yes (Initially hypertensive.) - General General: Alert and oriented X 3, Well developed/nourished - HEENT HEENT: Atraumatic, Pharynx benign - Neck Neck: No bony TTP, No adenopathy - Cardiac Cardiac: RRR - Respiratory Respiratory: No respiratory distress, Clear bilaterally - Abdomen Abdomen: Soft, Non tender - Back Back: No CVA TTP, No spinal TTP, Other (Tenderness to palpation along the right paralumbar musculature, without tenderness to palpation along the spinous processes.) - Derm Derm: No rash - Extremities Extremities: No edema, No calf tenderness / cord, Other (Straight leg raise test is negative bilaterally.) - Neuro Neuro: Alert and oriented X 3, No motor deficit, No sensory deficit Results - Vitals Vitals: Vital Signs - 24 hr 12/18/18 04:41 Temperature 36.6 C Heart Rate 98 Respiratory 20 Rate Blood Pressure 144/102 H O2 Saturation 98 Oxygen O2 Source Room air PD MEDICAL DECISION MAKING - ED course Complexity details: reviewed old records, re-evaluated patient, considered differential, d/w patient ED course: The patient's presentation is most consistent with acute exacerbation of chronic low back pain. His presentation does not suggest epidural abscess, spinal stenosis, or cauda equina syndrome. Treatment in the emergency department included administration of Toradol 60 mg IM, Dexamethasone 10 mg orally, and lidoderm patch. His pain slightly improved with the above treatment. He is being discharged with prescriptions for Flexeril and for Tramadol, 12 tablets. I discussed with him symptomatic treatment, outpatient follow up, as well as potentially worrisome signs or symptoms that should prompt re-evaluation in the emergency department. Departure - Departure Disposition: 01 Home, Self Care Clinical Impression: Acute exacerbation of chronic low back pain Condition: Stable Instructions: ED Low Back Pain Injury Follow-Up: Cecil Mitchell PA-C [Primary Care Provider] - Prescriptions: Tramadol HCl 50 mg PO Q6HR PRN #12 tablet PRN Reason: Pain Cyclobenzaprine [Flexeril] 10 mg PO TID PRN #20 tablet PRN Reason: Spasms Comments: Apply ice pack to your lower back intermittently for the next three days. You can use ibuprophen, up to 800 mg daily for its anti-inflammatory effect. You can use Flexeril as prescribed if needed for muscle spasms. You can use Tramadol as prescribed if needed for pain. Let pain be your guide to activity level. Follow up with your primary physician within two weeks. Call to schedule an appointment. Return to the emergency department if you develop increasing pain, urinary incontinence, numbness or weakness, or otherwise worsening symptoms. Forms: Activity restrictions
[2018-12-18] MEDS ORDERED: LIDOCAINE PATCH 5% TOP STA (05:25)
== END 2018-12-18 05:44 | disposition home or self-care (01) ==
LOC: ED 04:37
DX: M54.5 Low back pain (principal); G89.29 Other chronic pain
CPT/HCPCS: 96372; 99283; A9270

== ENCOUNTER 2019-04-05 20:23 | Outpatient (CLI) | payer MEDICAID | END 2019-04-05 20:24 | disposition critical access hospital (66) | LOC: EMS 20:23 | PROVIDERS: ATTEND Surgery | DX: R51 Headache (principal); V48.5XXA Car driver injured in noncollision transport accident in traffic accident, initial encounter; Y92.413 State road as the place of occurrence of the external cause | CPT/HCPCS: A0425; A0429; A0999 ==

== ENCOUNTER 2019-04-05 20:53 | Emergency (ER) | payer MEDICAID ==
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
[2019-04-05 21:25] LABS: BASOPHILS % (AUTO) 0.5 %; EOSINOPHILS % (AUTO) 0.5 %; HGB - HEMOGLOBIN 16.2 g/dL (14.0-18.0); LYMPHOCYTES # (AUTO) 1.8 10^3/uL (1.5-3.5); LYMPHOCYTES % (AUTO) 27.1 %; MEAN CORPUSCULAR HEMOGLOBIN 30.1 pg (27.0-31.0); MEAN CORPUSCULAR VOLUME 91.1 fL (80.0-94.0); MEAN PLATELET VOLUME 11.9 fL (7.4-11.4); MONOCYTES # (AUTO) 0.3 10^3/uL (0.0-1.0); MONOCYTES % (AUTO) 4.3 %; NEUTROPHILS # (AUTO) 4.4 10^3/uL (1.5-6.6); NEUTROPHILS % (AUTO) 67.4 %; PLT - PLATELET COUNT 214 10^3/uL (130-450); RED BLOOD COUNT 5.39 10^6/uL (4.70-6.10); RED CELL DISTRIBUTION WIDTH 12.2 % (12.0-15.0); WHITE BLOOD COUNT 6.6 x10^3/uL (4.8-10.8)
[2019-04-05] MEDS ORDERED: IOVERSOL 320 100 ML VIAL IVP ONE ×2 (21:32→22:02)
[2019-04-05 21:35] LABS: ALBUMIN 4.5 g/dL (3.2-5.5); ALBUMIN/GLOBULIN RATIO 1.5 (1.0-2.2); BILIRUBIN,TOTAL 0.6 mg/dL (0.2-1.0); CALCIUM 8.8 mg/dL (8.5-10.3); CREATININE 1.1 mg/dL (0.6-1.2); TOTAL PROTEIN 7.5 g/dL (6.7-8.2)
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
[2019-04-05 23:41] VITALS: BP 112/64
== END 2019-04-05 23:42 | disposition home or self-care (01) ==
LOC: EDUNIT# → ED 20:53
DX: R10.10 Upper abdominal pain, unspecified (principal); S50.811A Abrasion of right forearm, initial encounter; V89.2XXA Person injured in unspecified motor-vehicle accident, traffic, initial encounter; Y92.89 Other specified places as the place of occurrence of the external cause
CPT/HCPCS: 36415; 70486; 71046; 74177; 80053; 83690; 85025; 99282; 99284; Q9967

== ENCOUNTER 2019-04-06 17:37 | Emergency (ER) | payer MEDICAID ==
[2019-04-06] MEDS ORDERED: LORazepam 1 MG TABLET PO STA (17:57)
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
--- NOTE | 2019-04-06 18:42 | CT Report ---
Reason: neck pain Procedure Date: 04/06/2019 Accession Number: [id number] / [id number] Procedure: CT - CERVICAL SPINE WO CPT Code: FULL RESULT: EXAM: CT CERVICAL SPINE WITHOUT CONTRAST DATE: 04/06/2019 06:06 PM. HISTORY: Neck pain. COMPARISONS: CERVICAL SPINE W/O 08/03/2018 5:08 PM. TECHNIQUE: Thin-section axial images were acquired of the cervical spine without contrast. Post-processing: Coronal and sagittal reformats. Other: None. In accordance with CT protocol optimization, one or more of the following dose reduction techniques were utilized for this exam: automated exposure control, adjustment of mA and/or KV based on patient size, or use of iterative reconstructive technique. FINDINGS: Alignment: No scoliosis or spondylolisthesis. Bones: No fracture or bone lesion. Interspace Levels/Facets: C1-C2: Unremarkable. C2-C3: Unremarkable. C3-C4: Unremarkable. C4-C5: Unremarkable. C5-C6: Unremarkable. C6-C7: Unremarkable. C7-T1: Unremarkable. Musculature: Normal. No fatty atrophy. Other: The paravertebral and prevertebral soft tissues are unremarkable. The lung apices are clear. IMPRESSION: No acute fractures or malalignment. [facility]
[2019-04-06 19:09] VITALS: BP 135/74
== END 2019-04-06 19:16 | disposition home or self-care (01) ==
LOC: ED 17:37
DX: S16.1XXA Strain of muscle, fascia and tendon at neck level, initial encounter (principal); V89.2XXA Person injured in unspecified motor-vehicle accident, traffic, initial encounter
CPT/HCPCS: 72125; 99282; 99284; J8499

== ENCOUNTER 2020-09-25 08:54 | Outpatient (CLI) | payer MEDICAID ==
[2020-09-25 11:38] LABS: BASOPHILS % (AUTO) 0.4 %; EOSINOPHILS # (AUTO) 0.3 10^3/uL (0.0-0.7); EOSINOPHILS % (AUTO) 4.1 %; HCT - HEMATOCRIT 48.8 % (42.0-52.0); HGB - HEMOGLOBIN 15.7 g/dL (14.0-18.0); LYMPHOCYTES # (AUTO) 3.3 10^3/uL (1.5-3.5); LYMPHOCYTES % (AUTO) 44.4 %; MEAN CORPUSCULAR HGB CONC 32.2 g/dL (32.0-36.0); MEAN CORPUSCULAR VOLUME 93.1 fL (80.0-94.0); MEAN PLATELET VOLUME 12.5 fL (7.4-11.4); MONOCYTES # (AUTO) 0.4 10^3/uL (0.0-1.0); MONOCYTES % (AUTO) 5.3 %; NEUTROPHILS # (AUTO) 3.4 10^3/uL (1.5-6.6); NEUTROPHILS % (AUTO) 45.5 %; PLT - PLATELET COUNT 218 10^3/uL (130-450); RED BLOOD COUNT 5.24 10^6/uL (4.70-6.10); RED CELL DISTRIBUTION WIDTH 12.8 % (12.0-15.0); WHITE BLOOD COUNT 7.4 x10^3/uL (4.8-10.8)
[2020-09-25 12:12] LABS: ALBUMIN 4.2 g/dL (3.2-5.5); ALBUMIN/GLOBULIN RATIO 1.3 (1.0-2.2); ALKALINE PHOSPHATASE 82 IU/L (42-121); ALT ALANINE AMINOTRANSFERASE 43 IU/L (10-60); AST ASPARTATE AMINOTRANSFERASE 35 IU/L (10-42); BILIRUBIN,TOTAL 0.6 mg/dL (0.2-1.0); BUN - BLOOD UREA NITROGEN 10 mg/dL (6-20); CALCIUM 9.9 mg/dL (8.5-10.3); CARBON DIOXIDE - CO2 28 mmol/L (21-32); CHLORIDE 107 mmol/L (101-111); CHOL/HDL RATIO 4.6 (<5.0); CHOLESTEROL 195 mg/dL; CREATININE 1.2 mg/dL (0.6-1.2); GFR - MDRD 72 (>89); GLUCOSE 94 mg/dL (70-100); HDL CHOLESTEROL 42 mg/dL; LDL CHOLESTEROL,CALCULATED 122 mg/dL; LDL/HDL RATIO 2.9 (<3.6); POTASSIUM 4.2 mmol/L (3.5-5.0); SODIUM 142 mmol/L (135-145); TOTAL PROTEIN 7.4 g/dL (6.7-8.2); TRIGLYCERIDES 154 mg/dL; VLDL CHOLESTEROL 31 mg/dL
== END 2020-09-25 23:59 | disposition home or self-care (01) ==
LOC: LAB.WCP 08:54
PROVIDERS: ATTEND Family Medicine
DX: I25.2 Old myocardial infarction (principal)
CPT/HCPCS: 36415; 80053; 80061; 83721; 85025

== ENCOUNTER 2021-09-05 15:55 | Emergency (ER) | payer MEDICAID ==
--- NOTE | 2021-09-05 16:03 | ED Physician Documentation ---
PD HPI LOWER EXT INJURY - Stated complaint Stated Complaint: LT HIP PX - Chief complaint Chief Complaint: Ext Problem - History obtained from History obtained from: Patient - History of Present Illness PD HPI LOW EXT INJURY LOCATION: Left, Hip (lateral hip radiating down lateral side.) Type of injury: Other (Repetitive bending and twisting and standing.). No: Fall, Twist Where injury occurred: Work, Other (He works at [employer] so is on his feet with a lot of torsional movement. Onset of pain there and has been worsening.) Timing - onset: How many days ago (several days) Timing - duration: Days (3) Timing - details: Gradual onset, Still present Improved by: Rest Worsened by: Moving, Palpating (lateral left hip) Associated symptoms: No: Weakness, Numbness Similar symptoms before: Has not had sx before Recently seen: Not recently seen Review of Systems Constitutional: denies: Fever, Chills Nose: denies: Rhinorrhea / runny nose, Congestion Throat: denies: Sore throat Respiratory: denies: Cough Skin: denies: Rash, Lesions Neurologic: denies: Focal weakness, Numbness PD PAST MEDICAL HISTORY - Past Medical History Cardiovascular: Other Respiratory: None Neuro: None Endocrine/Autoimmune: None HEENT: None Psych: Depression, Post traumatic stress disorder Musculoskeletal: Chronic back pain, Other - Past Surgical History Past Surgical History: No - Present Medications Home Medications: Ambulatory Orders Medication Instructions Recorded Confirmed raNITIdine HCl [Ranitidine HCl] 1 tab PO DAILY 04/05/19 04/05/19 Lorazepam [Ativan] 1 mg PO TID PRN #7 tablet 04/06/19 HYDROcod/ACETAM 5/325 [[place]alf[place] 5/325] 1 ea PO Q6H PRN #12 tablet 09/05/21 Lidocaine Patch 5% [Lidoderm Patch] 1 patch TOP DAILY PRN #10 patch 09/05/21 Naproxen [Naprosyn] 500 mg PO BID 7 Days #28 tablet 09/05/21 - Allergies Allergies/Adverse Reactions: Allergies Allergy/AdvReac Type Severity Reaction Status Date / Time tizanidine Allergy Hallucinati Verified 09/05/21 16:01 ons - Social History Does the pt smoke?: No Smoking Status: Never smoker Does the pt drink ETOH?: Yes Does the pt have substance abuse?: No - Immunizations Immunizations are current?: Yes - POLST Patient has POLST: No PD ED PE NORMAL - Vitals Vital signs reviewed: Yes - General General: Alert and oriented X 3, No acute distress, Well developed/nourished, Other (favoring ROM of the left hip with gait. ) - Derm Derm: Normal color, Warm and dry, No rash - Extremities Extremities: Other (Tender over the lateral trochanter with point tenderness at the bursal area. No redness nor swelling. Some tenderness downward along the IT band. Pain with external rotation and abduction of the hip. No pain with extension and flexion. SI area is not tender.) - Neuro Neuro: Alert and oriented X 3, No motor deficit, No sensory deficit Results - Vitals Vitals: Vital Signs - 24 hr 09/05/21 09/05/21 15:58 16:54 Temperature 36.0 C L Heart Rate 61 74 Respiratory 16 16 Rate Blood Pressure 141/79 H 126/77 O2 Saturation 99 98 Oxygen O2 Source Room air - Rads (name of study) left hip Radiology: Prelim report reviewed (no acute process), See rad report Procedures - General procedure General procedure: local injection left trochanter bursa with ropivocaine and Kenalog after cleansing skin. Tolerated well. PD MEDICAL DECISION MAKING - ED course Complexity details: reviewed results, considered differential (Tender laterally on the hip over the greater tuberosity and downward along the IT band. Presume trochanteric bursitis and some IT strain. X-ray without any significant bony abnormality. Will treat with local injection as well as NSAIDs and lidocaine.), d/w patient Departure - Departure Disposition: 01 Home, Self Care Clinical Impression: Trochanteric bursitis of left hip Condition: Stable Record reviewed to determine appropriate education?: Yes Instructions: ED Bursitis Follow-Up: Charis Paul DO [Primary Care Provider] - Prescriptions: Lidocaine Patch 5% [Lidoderm Patch] 1 patch TOP DAILY PRN #10 patch PRN Reason: pain Naproxen [Naprosyn] 500 mg PO BID 7 Days #28 tablet HYDROcod/ACETAM 5/325 [Chalfont 5/325] 1 ea PO Q6H PRN #12 tablet PRN Reason: Pain Comments: Your x-ray appears normal in the area. No signs of spurs or arthritic changes at that part of the hip. This sounds like some inflammation of the bursa and the tendon insertion on the outer part of the hip in an area called the trochanter. This is an attachment point for muscles and can get irritated easily with repetitive use. Typically will get better with some decreased activity as well as anti- inflammatories. You can also use topical lidocaine patch to help with some of the symptoms. Naproxen 500 mg twice daily with food for the next week. Topical patch as needed as well. To that add Tylenol every 4-6 hours if needed for pain. I would anticipate improvement over the next several days to week. If persisting, you may need to modify work activity for a longer duration. For now off work tonight and then the next 2 days that you have off. I sent your prescriptions to [facility] in [place]. Forms: Activity restrictions Discharge Date/Time: 09/05/21 16:56
[2021-09-05] MEDS ORDERED: TRIAMCINOLONE 40 MG/ML VIAL IM STA (16:18)
[2021-09-05] MEDS ORDERED: NAPROXEN 250 MG TABLET PO STA (16:18)
[2021-09-05] MEDS ORDERED: ACETAMINOPHEN 325 MG TABLET PO STA (16:18)
[2021-09-05 16:56] VITALS: BP 126/77
--- NOTE | 2021-09-05 17:38 | XRAY Report ---
PROCEDURE: Hip w/Pelvis 2-3V LT INDICATIONS: left lateral hip pain TECHNIQUE: AP pelvis with lateral view(s) of the left hip(s). COMPARISON: None. FINDINGS: Bones: No fractures or dislocations. Pelvic ring appears intact. No suspicious bony lesions. Mild left hip degenerative change. Soft tissues: The visualized bowel gas pattern is normal. No suspicious soft tissue calcifications. IMPRESSION: 1. Mild left hip degenerative change. 2. No evidence acute bony abnormality of the pelvis and left hip. If clinical suspicion and/or symptoms persist, further assessment with repeat plain films or advanced imaging (e.g., CT, MRI, or bone scan) may be helpful for further assessment. Reviewed by: Jero Suarez MD on 09/05/2021 4:36 PM [facility] Approved by: Jero Suarez MD on 09/05/2021 4:36 PM [facility] Station ID: [id number]
== END 2021-09-05 16:56 | disposition home or self-care (01) ==
LOC: ED 15:55
DX: M70.62 Trochanteric bursitis, left hip (principal)
CPT/HCPCS: 20610; 73502; 99282; 99283; A9270

== ENCOUNTER 2023-04-14 09:39 | Emergency (ER) | payer MEDICAID ==
[2023-04-14] MEDS ORDERED: diphenhydrAMINE 25 MG CAPSULE PO STA (10:18)
[2023-04-14] MEDS ORDERED: predniSONE 20 MG TABLET PO STA (10:18)
--- NOTE | 2023-04-14 10:21 | ED Physician Documentation ---
PD HPI SKIN - Stated complaint Stated Complaint: LT/RT ARM RASH - Chief complaint Chief Complaint: Wound - History obtained from History obtained from: Patient - Additional information Additional information: Patient is a 33-year-old male presenting for evaluation of rash to his bilateral arms that he has noticed for the past 2 days. Patient states that it has been itchy. He has tried hydrocortisone for the past 2 days without any improvement. 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 States he has not been outside and denies concerns for poison adriano/sumac/oak. No fever, shortness of air. Denies a history of similar symptoms in the past. No new medications, no new lotions or soaps or new animals. Review of Systems Constitutional: denies: Fever Cardiac: denies: Chest pain / pressure Respiratory: denies: Dyspnea Skin: reports: Rash PD PAST MEDICAL HISTORY - Past Medical History Past Medical History: Yes Cardiovascular: Other Respiratory: None Neuro: None Endocrine/Autoimmune: None HEENT: None Psych: Depression, Post traumatic stress disorder Musculoskeletal: Chronic back pain, Other - Past Surgical History Past Surgical History: No - Present Medications Home Medications: Ambulatory Orders Medication Instructions Recorded Confirmed raNITIdine HCl [Ranitidine HCl] 1 tab PO DAILY 04/05/19 04/05/19 Lorazepam [Ativan] 1 mg PO TID PRN #7 tablet 04/06/19 HYDROcod/ACETAM 5/325 [Todd 5/325] 1 ea PO Q6H PRN #12 tablet 09/05/21 Lidocaine Patch 5% [Lidoderm Patch] 1 patch TOP DAILY PRN #10 patch 09/05/21 Naproxen [Naprosyn] 500 mg PO BID 7 Days #28 tablet 09/05/21 predniSONE [Deltasone] 60 mg PO DAILY 4 Days #12 tablet 04/14/23 - Allergies Allergies/Adverse Reactions: Allergies Allergy/AdvReac Type Severity Reaction Status Date / Time tizanidine Allergy Hallucinati Verified 04/14/23 09:49 ons - Social History Does the pt smoke?: No Smoking Status: Never smoker Does the pt drink ETOH?: Yes Does the pt have substance abuse?: No - Immunizations Immunizations are current?: Yes - POLST Patient has POLST: No PD ED PE NORMAL - General General: Alert and oriented X 3, No acute distress, Well developed/nourished - HEENT HEENT: Atraumatic, Moist mucous membranes, Pharynx benign - Respiratory Respiratory: No respiratory distress - Derm Derm: Other (Urticarial rash to bilateral forearms and extending into the upper arms, no involvement of hands or palms or interdigit spaces, no mucosal surface involvement) Results - Vitals Vitals: Vital Signs - 24 hr 04/14/23 04/14/23 09:46 10:27 Temperature 36.6 C 36.6 C Heart Rate 69 65 Respiratory 15 16 Rate Blood Pressure 147/80 H 144/79 H O2 Saturation 97 98 Oxygen O2 Source Room air PD Medical Decision Making - ED course ED course: Patient is a 33-year-old presenting for evaluation of a rash to bilateral arms present for the past 2 days. Vital signs are stable. Patient is well-appearing and nontoxic. Rash does not appear to be infectious in etiology. No involvement of palms or mucosal surfaces. Suspect allergic in nature and will trial short course of prednisone as he has had no improvement with topical steroids. Patient counseled on concerning symptoms to return for. Departure - Departure Disposition: 01 Home, Self Care Clinical Impression: Rash and nonspecific skin eruption Condition: Stable Instructions: ED Dermatitis Non Specific Rash Prescriptions: predniSONE [Deltasone] 60 mg PO DAILY 4 Days #12 tablet Comments: You were evaluated for a rash to the bilateral arms. You were evaluated for a rash to both arms. At this time I do not see signs of infection and feel that your rash is likely related to an allergic process. I am starting you on a course of oral steroids due to the widespread involvement. I have sent this prescription to either drug in [place]. You have received the first dose here in the emergency department and the next dose is to be taken tomorrow. Please use Benadryl (diphenhydramine) to help with any itching. Return to the emergency department with any worsening symptoms. Forms: PCP List Discharge Date/Time: 04/14/23 10:27
[2023-04-14 10:30] VITALS: BP 144/79; O2SAT 98
== END 2023-04-14 10:27 | disposition home or self-care (01) ==
LOC: ED 09:39
DX: R21 Rash and other nonspecific skin eruption (principal)
CPT/HCPCS: 99282; 99283; A9270; J7512

== ENCOUNTER 2023-05-31 18:35 | Emergency (ER) | payer MEDICAID ==
[2023-05-31 18:47] VITALS: BP 140/85; O2SAT 98
[2023-05-31] MEDS ORDERED: oxyCODONE/ACET 5/325 Prepack 4 PO STA (19:05)
[2023-05-31] MEDS ORDERED: AMOX/CLAV 875 MG/125 MG TABLET PO STA (19:05)
--- NOTE | 2023-05-31 19:07 | ED Physician Documentation ---
History of Present Illness - Stated complaint Stated Complaint: MOUTH/JAW PX - Chief complaint Chief Complaint: Heent - History obtained from History obtained from: Patient - Additonal information Additional information: 33-year-old gentleman with history of poor dentition fibromyalgia presents with 4 days of pain from right mandible and maxilla with a cavity. No fevers. He had some facial swelling but now better. He tried to get in with [facility] but is having trouble. PD PAST MEDICAL HISTORY - Past Medical History Cardiovascular: Other Respiratory: None Neuro: None Endocrine/Autoimmune: None HEENT: None Psych: Depression, Post traumatic stress disorder Musculoskeletal: Chronic back pain, Other - Past Surgical History Past Surgical History: No - Present Medications Home Medications: Ambulatory Orders Medication Instructions Recorded Confirmed raNITIdine HCl [Ranitidine HCl] 1 tab PO DAILY 04/05/19 04/05/19 Lorazepam [Ativan] 1 mg PO TID PRN #7 tablet 04/06/19 HYDROcod/ACETAM 5/325 [Henrietta 5/325] 1 ea PO Q6H PRN #12 tablet 09/05/21 Lidocaine Patch 5% [Lidoderm Patch] 1 patch TOP DAILY PRN #10 patch 09/05/21 Naproxen [Naprosyn] 500 mg PO BID 7 Days #28 tablet 09/05/21 predniSONE [Deltasone] 60 mg PO DAILY 4 Days #12 tablet 04/14/23 Amox/Clav 875/125 [Augmentin] 1 each PO Q12H #20 tablet 05/31/23 Oxycodone HCl/Acetaminophen 1 - 2 each PO Q6H PRN #10 tablet 05/31/23 [Percocet 5-325 mg Tablet] - Allergies Allergies/Adverse Reactions: Allergies Allergy/AdvReac Type Severity Reaction Status Date / Time tizanidine Allergy Hallucinati Verified 05/31/23 18:38 ons - Social History Does the pt smoke?: No Smoking Status: Never smoker Does the pt drink ETOH?: Yes Does the pt have substance abuse?: No - Immunizations Immunizations are current?: Yes - POLST Patient has POLST: No PD ED PE NORMAL - Vitals Vital signs reviewed: Yes - General General: Alert and oriented X 3, No acute distress - HEENT HEENT: Other (He is missing all the molars from the left mandible, but some tenderness there. There is also a tender cavity of the last molar on the left maxilla. No facial tenderness. No swelling. No trismus, no sublingual edema.) - Neuro Neuro: Alert and oriented X 3 Results - Vitals Vitals: Vital Signs - 24 hr 05/31/23 18:38 Temperature 36.8 C Heart Rate 83 Respiratory 16 Rate Blood Pressure 140/85 H O2 Saturation 98 Oxygen O2 Source Room air Departure - Departure Disposition: 01 Home, Self Care Clinical Impression: Pain due to dental caries Condition: Good Record reviewed to determine appropriate education?: Yes Instructions: ED Tooth Pain Prescriptions: Amox/Clav 875/125 [Augmentin] 1 each PO Q12H #20 tablet Oxycodone HCl/Acetaminophen [Percocet 5-325 mg Tablet] 1 - 2 each PO Q6H PRN #10 tablet PRN Reason: pain Comments: I sent your prescription electronically to [facility] in [place]. It is very important that you follow-up with a dentist. When it comes to dental problems like yours, the emergency department can only offer a short-term solution to your long-term problem. A couple of low cost options for dental care include: [facility] in [place], calls [phone] for an appointment Or [facility] in [place], call [phone] for an appointment. I am prescribing a short course of narcotic pain medication for you. These are potentially dangerous and addictive medications that should be used carefully. These medications may constipate you. Take an [id number]-tznlhow stool softener (docusate) twice daily with plenty of water while taking these medications. If you go 24 hours without a bowel movement, take [id number] miralax, per package instructions. Do not drink or drive while taking these medications. If you received narcotic or sedating medications while in the emergency department, do not drive for 24 hours. Store this medication in a safe, secure place and out of reach of children. It is a violation of federal law to give or sell this medication to another person or to use in a manner other than prescribed. The ED will not refill narcotic prescriptions, including prescriptions lost or stolen. To dispose of unwanted medications: 1. [facility]'s Office provides a drop box for medication in pill form only (no liquids) 8:00 am to 4:30 p.m. Tuesday-Tuesday in the lobby [facility], [address] Empty pills into ziplock bag before disposal. Call [phone] for information. 2.[employer] is a free service available to all [facility] residents. Go to [email or web address] Note that many narcotic pain relievers also contain Tylenol/acetaminophen. Please ensure that your total dose of acetaminophen from all sources does not exceed 3 g (3000 mg) per day.
== END 2023-05-31 19:19 | disposition home or self-care (01) ==
LOC: ED 18:35
DX: K08.89 Other specified disorders of teeth and supporting structures (principal)
CPT/HCPCS: 99282; 99283; A9270

== ENCOUNTER 2023-06-09 06:10 | Emergency (ER) | payer MEDICAID ==
[2023-06-09 06:48] VITALS: BP 134/96; O2SAT 99
[2023-06-09 07:07] LABS: BILIRUBIN,URINE NEGATIVE (NEGATIVE); GLUCOSE, URINE (UA) NEGATIVE (NEGATIVE); KETONES,URINE (UA) NEGATIVE (NEGATIVE); LEUKOCYTE ESTERASE, URINE NEGATIVE (NEGATIVE); NITRITE,URINE NEGATIVE (NEGATIVE); OCCULT BLOOD,URINE NEGATIVE (NEGATIVE); PROTEIN,URINE NEGATIVE (NEGATIVE); UROBILINOGEN,URINE 0.2 (NORMAL) E.U./dL (NORMAL)
[2023-06-09 07:09] LABS: ALBUMIN 4.4 g/dL (3.2-5.5); ALBUMIN/GLOBULIN RATIO 1.7 (1.0-2.2); ALKALINE PHOSPHATASE 75 IU/L (42-121); ALT ALANINE AMINOTRANSFERASE 19 IU/L (10-60); AST ASPARTATE AMINOTRANSFERASE 17 IU/L (10-42); BILIRUBIN,TOTAL 0.4 mg/dL (0.2-1.0); BUN - BLOOD UREA NITROGEN 15 mg/dL (6-20); CALCIUM 9.4 mg/dL (8.5-10.3); CARBON DIOXIDE - CO2 27 mmol/L (21-32); CHLORIDE 109 mmol/L (101-111); ETOH - ETHANOL < 10.0 mg/dL; GFR - MDRD 87 (>89); GLUCOSE 89 mg/dL (74-104); LIPASE 19 U/L (11-82); POTASSIUM 3.7 mmol/L (3.5-4.5); SODIUM 141 mmol/L (135-145)
[2023-06-09 07:10] LABS: CLARITY,URINE CLEAR (CLEAR)
[2023-06-09 07:24] LABS: THYROID STIMULATING HORMONE 1.34 uIU/mL (0.34-5.60)
[2023-06-09 07:26] LABS: SALICYLATE < 1.5 mg/dL
[2023-06-09 07:28] LABS: ACETAMINOPHEN < 0.1 ug/mL
[2023-06-09 07:31] LABS: BASOPHILS % (AUTO) 0.7 %; EOSINOPHILS # (AUTO) 0.3 10^3/uL (0.0-0.7); EOSINOPHILS % (AUTO) 5.5 %; HCT - HEMATOCRIT 47.5 % (42.0-52.0); HGB - HEMOGLOBIN 15.4 g/dL (14.0-18.0); LYMPHOCYTES # (AUTO) 2.7 10^3/uL (1.5-3.5); LYMPHOCYTES % (AUTO) 44.3 %; MEAN CORPUSCULAR HEMOGLOBIN 30.4 pg (27.0-31.0); MEAN CORPUSCULAR HGB CONC 32.4 g/dL (32.0-36.0); MEAN CORPUSCULAR VOLUME 93.7 fL (80.0-94.0); MONOCYTES # (AUTO) 0.4 10^3/uL (0.0-1.0); MONOCYTES % (AUTO) 6.8 %; NEUTROPHILS # (AUTO) 2.6 10^3/uL (1.5-6.6); NEUTROPHILS % (AUTO) 42.5 %; PLT - PLATELET COUNT 226 10^3/uL (130-450); RED BLOOD COUNT 5.07 10^6/uL (4.70-6.10); RED CELL DISTRIBUTION WIDTH 12.6 % (12.0-15.0); WHITE BLOOD COUNT 6.1 x10^3/uL (4.8-10.8)
[2023-06-09 07:47] LABS: AMPHETAMINE SCREEN,URINE NEGATIVE (NEGATIVE); BARBITURATE SCREEN,UR NEGATIVE (NEGATIVE); BENZODIAZEPINES SCREEN, URINE NEGATIVE (NEGATIVE); BUPRENORPHINE SCREEN, URINE NEGATIVE (NEGATIVE); COCAINE SCREEN URINE NEGATIVE (NEGATIVE); METHADONE SCREEN, URINE NEGATIVE (NEGATIVE); METHAMPHETAMINES SCREEN, URINE NEGATIVE (NEGATIVE); OPIATE SCREEN, URINE NEGATIVE (NEGATIVE); OXYCODONE SCREEN, URINE NEGATIVE (NEGATIVE); THC CANNABINOID SCREEN, URINE NEGATIVE (NEGATIVE); TRICYCLIC ANTIDEPRESSANT,URINE NEGATIVE (NEGATIVE)
--- NOTE | 2023-06-09 08:01 | ED Physician Documentation ---
PD HPI MHE - Stated complaint Stated Complaint: MHE - Chief complaint Chief Complaint: MHE - History obtained from History obtained from: Patient - History of Present Illness Primary symptom: Suicidal ideation (no plan per se. Passive thoughts and mostly depressed and anxious, largely related to tomorrow being "anniversary" of his 3 year old child dying of SIDS years ago.), Depression, Out of meds (was not prescrived any out of nursing home, and had not gotten Psychologic perovider appt as yet.). No: Suicide attempt Contributing factors: Family, Out of meds. No: Substance abuse - ETOH, Substance abuse - drugs Similar symptoms before: Has not had sx before (ongoing depression and sometimes hypomania/anxiety, with Dx of bipolar/cyclothymia in the past.) Recently seen: Not recently seen (he states was Rx aripiprazole and trazodone while in nursing home but no meds since release 4 months ago. he states the first med made him feel restless legs and did not think it effective. Minimal counseling in nursing home for his PTSD/depression.) Review of Systems GI: reports: Other (has had recent rectal pain with BMs and wiping, without any noted blood. Tender at rectal area.). denies: Abdominal Pain, Nausea, Vomiting, Diarrhea PD PAST MEDICAL HISTORY - Past Medical History Past Medical History: Yes Cardiovascular: Other Respiratory: None Neuro: None Endocrine/Autoimmune: None HEENT: None Psych: Depression, Anxiety, Post traumatic stress disorder, Other Musculoskeletal: Chronic back pain, Other Other Past Medical History: Borderline Personality Disorder. - Past Surgical History Past Surgical History: No - Present Medications Home Medications: Ambulatory Orders Medication Instructions Recorded Confirmed Amox/Clav 875/125 [Augmentin 1 tab PO BID 06/09/23 06/09/23 875/125 Tab] Citalopram [CeleXA] 10 mg PO DAILY #30 tablet 06/09/23 Cyclobenzaprine HCl 10 mg PO QPM 06/09/23 06/09/23 Gabapentin [Neurontin] 300 mg PO TID 06/09/23 06/09/23 Hydrocortisone Supp [Anusol-Hc] 25 mg WA DAILY #5 supp 06/09/23 Ibuprofen [Motrin] 800 mg PO Q8HR PRN 06/09/23 06/09/23 traZODone [Desyrel] 50 mg PO HS PRN #12 tablet 06/09/23 - Allergies Allergies/Adverse Reactions: Allergies Allergy/AdvReac Type Severity Reaction Status Date / Time tizanidine Allergy Hallucinati Verified 06/09/23 06:38 ons - Social History Does the pt smoke?: No Smoking Status: Never smoker Does the pt drink ETOH?: Yes Does the pt have substance abuse?: No - Immunizations Immunizations are current?: Yes - POLST Patient has POLST: No PD ED PE NORMAL - Vitals Vital signs reviewed: Yes - General General: Alert and oriented X 3, No acute distress, Well developed/nourished - Cardiac Cardiac: RRR, No murmur - Respiratory Respiratory: No respiratory distress, Clear bilaterally - Abdomen Abdomen: Soft, Non tender - Rectal Rectal: Other (pt has somall external nonthrombosed but tender hemorrhoid. No induration of tissue nor feel of abscess. ) - Derm Derm: Normal color, Warm and dry Results - Vitals Vitals: Vital Signs - 24 hr 06/09/23 06:31 Temperature 36.4 C L Heart Rate 64 Respiratory 18 Rate Blood Pressure 134/96 H O2 Saturation 99 Oxygen O2 Source Room air - Labs Labs: Laboratory Tests 06/09/23 06/09/23 06/09/23 06:45 06:50 06:50 WBC 6.1 RBC 5.07 Hgb 15.4 Hct 47.5 MCV 93.7 MCH 30.4 MCHC 32.4 RDW 12.6 Plt Count 226 MPV 12.0 H Neut # (Auto) 2.6 Lymph # (Auto) 2.7 Nuckolls # (Auto) 0.4 Eos # (Auto) 0.3 Baso # (Auto) 0.0 Absolute Nucleated RBC 0.00 Nucleated RBC % 0.0 Sodium 141 Potassium 3.7 Chloride 109 Carbon Dioxide 27 Anion Gap 5.0 L BUN 15 Creatinine 1.0 Estimated GFR (MDRD) 87 L Glucose 89 Calcium 9.4 Total Bilirubin 0.4 AST 17 ALT 19 Alkaline Phosphatase 75 Total Protein 7.0 Albumin 4.4 Globulin 2.6 Albumin/Globulin Ratio 1.7 Lipase 19 TSH 1.34 Urine Color YELLOW Urine Clarity CLEAR Urine pH 6.0 Ur Specific Homer 1.025 Urine Protein NEGATIVE Urine Glucose (UA) NEGATIVE Urine Ketones NEGATIVE Urine Occult Blood NEGATIVE Urine Nitrite NEGATIVE Urine Bilirubin NEGATIVE Urine Urobilinogen 0.2 (NORMAL) Ur Leukocyte Esterase NEGATIVE Ur Microscopic Review NOT INDICATED Urine Culture Comments NOT INDICATED Salicylates < 1.5 Urine Opiates Screen NEGATIVE Ur Buprenorphine Scrn NEGATIVE Ur Oxycodone Screen NEGATIVE Urine Methadone Screen NEGATIVE Acetaminophen < 0.1 Ur Barbiturates Screen NEGATIVE Ur Tricyclics Screen NEGATIVE Ur Phencyclidine Scrn NEGATIVE Ur Amphetamine Screen NEGATIVE U Methamphetamines Scrn NEGATIVE U Benzodiazepines Scrn NEGATIVE Urine Cocaine Screen NEGATIVE U Cannabinoids Screen NEGATIVE Ur Drug Screen Comment CUTOFF CONC BELOW: Ethyl Alcohol < 10.0 PD Medical Decision Making - ED course Complexity details: reviewed results, considered differential (depressed and worse due to anniversary of baby child dying of SIDS years go. No current counseling nor meds for it. Would like references. Is interested in starting meds. ), d/w patient, d/w industrial rehabilitation consultant (ocial W[employer] saw and tealked with pt, arranged for prompt follow up with [facility] [employer] [facility] in [place]. ) Social Determinants of Health: patient wanting to establish with counseling and prescribing psychological provider. He is amenable to starting meds while awaiting time for new appts. Chose Citalapram and trazodone. Also Rx anuSol suppos for the hemorrhoid. Departure - Departure Disposition: 01 Home, Self Care Clinical Impression: Hemorrhoid, Depression, Bipolar disorder, Situational depression Condition: Stable Record reviewed to determine appropriate education?: Yes Instructions: ED Depression, ED Hemorrhoids Follow-Up: Sonal Gustafson MD [Primary Care Provider] - Prescriptions: Hydrocortisone Supp [Anusol-Hc] 25 mg WA DAILY #5 supp Citalopram [CeleXA] 10 mg PO DAILY #30 tablet traZODone [Desyrel] 50 mg PO HS PRN #12 tablet PRN Reason: Anxiety Comments: Continue current medications. I wrote for starting an antidepressant called citalopram. Take it daily. I also wrote for a medication to help with anxiety and sleep called trazodone which you had taken before. You can use it at night if needed and often will help through the day as well. For your hemorrhoid I would suggest using a hemorrhoid suppository daily for the next 3 to 5 days and that should help take care of that. Follow-up with the mental health providers as discussed with the social work. Return as needed. I sent your prescriptions to your preferred pharmacy. Forms: PCP List, Activity restrictions Discharge Date/Time: 06/09/23 11:34
== END 2023-06-09 11:34 | disposition home or self-care (01) ==
LOC: ED 06:10
DX: F33.9 Major depressive disorder, recurrent, unspecified (principal); K64.9 Unspecified hemorrhoids
CPT/HCPCS: 36415; 80053; 80306; 80307; 80320; 80329; 81001; 81003; 82550; 83690; 83735; 84443; 85025; 87086; 99283; 99284

== ENCOUNTER 2023-06-15 14:33 | Outpatient (CLI) | payer MEDICAID ==
--- NOTE | 2023-06-15 16:13 | XRAY Report ---
PROCEDURE: Cervical Spine Complete INDICATIONS: CERVICAL RADICULOPATHY TECHNIQUE: 5 views of the cervical spine acquired. COMPARISON: CT cervical spine 04/06/2019. FINDINGS: Bones: No fractures or dislocations to the C7 level. Straightening of the normal cervical lordosis. Oblique images demonstrate no bony foraminal stenoses. Soft tissues: No prevertebral soft tissue swelling. IMPRESSION: Straightening of the normal cervical lordosis. No significant degenerative changes. Reviewed by: Laureano Arroyo MD on 06/15/2023 4:11 PM PST Approved by: Laureano Arroyo MD on 06/15/2023 4:11 PM PST Station ID: [id number]
== END 2023-06-15 14:34 | disposition home or self-care (01) ==
LOC: DI 14:33
PROVIDERS: ATTEND Family Medicine
DX: M54.12 Radiculopathy, cervical region (principal)

== ENCOUNTER 2023-06-20 07:14 | Outpatient (CLI) | payer MEDICAID ==
[2023-06-20 12:41] LABS: HCT - HEMATOCRIT 49.1 % (42.0-52.0); HGB - HEMOGLOBIN 15.6 g/dL (14.0-18.0); MEAN CORPUSCULAR HEMOGLOBIN 29.7 pg (27.0-31.0); MEAN CORPUSCULAR HGB CONC 31.8 g/dL (32.0-36.0); MEAN CORPUSCULAR VOLUME 93.5 fL (80.0-94.0); MEAN PLATELET VOLUME 12.3 fL (7.4-11.4); RED BLOOD COUNT 5.25 10^6/uL (4.70-6.10); RED CELL DISTRIBUTION WIDTH 12.5 % (12.0-15.0); WHITE BLOOD COUNT 6.8 x10^3/uL (4.8-10.8)
[2023-06-20 13:09] LABS: CALCIUM 9.6 mg/dL (8.5-10.3); CREATININE 1.1 mg/dL (0.6-1.3); POTASSIUM 4.4 mmol/L (3.5-4.5)
[2023-06-20 13:20] LABS: THYROID STIMULATING HORMONE 1.24 uIU/mL (0.34-5.60)
== END 2023-06-20 07:15 | disposition home or self-care (01) ==
LOC: LAB.N 07:14
PROVIDERS: ATTEND Family Medicine
DX: F60.3 Borderline personality disorder (principal); F31.32 Bipolar disorder, current episode depressed, moderate
CPT/HCPCS: 36415; 80048; 80178; 84443; 85027

== ENCOUNTER 2023-07-11 07:13 | Outpatient (CLI) | payer MEDICAID ==
[2023-07-12 18:08] LABS: ANTI-DNA (DS) AB QN <1 IU/mL (0-9)
[2023-07-13 19:10] LABS: CYCLIC CITRULLINATED PEP IGG/A 5 units (0-19)
== END 2023-07-11 07:14 | disposition home or self-care (01) ==
LOC: LAB.N 07:13
PROVIDERS: ATTEND Family Medicine
DX: M54.12 Radiculopathy, cervical region (principal); M53.3 Sacrococcygeal disorders, not elsewhere classified; R20.2 Paresthesia of skin; M54.50 Low back pain, unspecified; G89.29 Other chronic pain
CPT/HCPCS: 36415; 81374; 85651; 86140; 86200; 86225

== ENCOUNTER 2023-07-12 09:31 | Emergency (ER) | payer MEDICAID ==
[2023-07-12] MEDS ORDERED: DEXAMETHASONE 10 MG/ML VIAL IM STA (10:54)
[2023-07-12] MEDS ORDERED: KETOROLAC 60 MG/2 ML VIAL IM STA (10:54)
[2023-07-12] MEDS ORDERED: HYDROmorphone 1 MG/ML CARPUJECT IM STA (10:54)
--- NOTE | 2023-07-12 11:34 | ED Physician Documentation ---
History of Present Illness - Stated complaint Stated Complaint: BACK/NECK PX,NAUSEA, DIZZINESS - Chief complaint Chief Complaint: Back Pain - History obtained from History obtained from: Patient - Additonal information Additional information: The pt comes to the ED with CC of an exacerbation of his chronic neck and back pain. No specific trigger or trauma. He states he has felt tired and has had s ome lightheadedness and nausea, too. No other complaints at this time. PD PAST MEDICAL HISTORY - Past Medical History Past Medical History: Yes Cardiovascular: Hypertension, Other Respiratory: None Neuro: None Endocrine/Autoimmune: None GI: None : None HEENT: None Psych: Depression, Anxiety, Post traumatic stress disorder, Other Musculoskeletal: Chronic back pain, Other - Past Surgical History Past Surgical History: No - Present Medications Home Medications: Ambulatory Orders Medication Instructions Recorded Confirmed Citalopram [CeleXA] 10 mg PO DAILY #30 tablet 06/09/23 07/12/23 Cyclobenzaprine HCl 10 mg PO QPM 06/09/23 07/12/23 Gabapentin [Neurontin] 600 mg PO TID 06/09/23 07/12/23 Ibuprofen [Motrin] 800 mg PO Q8HR PRN 06/09/23 07/12/23 traZODone [Desyrel] 50 mg PO HS PRN #12 tablet 06/09/23 07/12/23 HYDROcod/ACETAM 5/325 [[place] 5/325] 1 - 2 tablet PO Q6H PRN #10 tablet 07/12/23 [place] Carbonate 300 mg PO TID 07/12/23 07/12/23 predniSONE [Deltasone] 10 mg PO [id number] #42 tab 07/12/23 - Allergies Allergies/Adverse Reactions: Allergies Allergy/AdvReac Type Severity Reaction Status Date / Time tizanidine Allergy Hallucinati Verified 07/12/23 09:35 ons - Social History Does the pt smoke?: No Smoking Status: Never smoker Does the pt drink ETOH?: Yes Does the pt have substance abuse?: No - Immunizations Immunizations are current?: Yes - POLST Patient has POLST: No PD ED PE NORMAL - Vitals Vital signs reviewed: Yes - General General: Alert and oriented X 3, No acute distress, Well developed/nourished - HEENT HEENT: Atraumatic, PERRL, EOMI, Moist mucous membranes - Neck Neck: Supple, no meningeal sign - Cardiac Cardiac: RRR, No murmur - Respiratory Respiratory: No respiratory distress, Clear bilaterally - Abdomen Abdomen: Soft, Non tender, Non distended - Back Back: Other - Derm Derm: Normal color, Warm and dry, No rash - Extremities Extremities: No deformity, No edema - Neuro Neuro: Alert and oriented X 3 - Psych Psych: Normal mood, Normal affect Results - Vitals Vitals: Oxygen O2 Source Room air PD Medical Decision Making - ED course Complexity details: considered differential, d/w patient ED course: The pt was treated symptomatically in the ED. His sx were most consistent with a musculoskeletal source of pain. We have discussed the need for follow-up and the usual indications for return. Departure - Departure Disposition: 01 Home, Self Care Clinical Impression: Acute exacerbation of chronic low back pain, Chronic neck pain Condition: Stable Instructions: ED Neck Back Pain General Prescriptions: predniSONE [Deltasone] 10 mg PO [id number] #42 tab HYDROcod/ACETAM 5/325 [[place] 5/325] 1 - 2 tablet PO Q6H PRN #10 tablet PRN Reason: Pain Comments: Your recent laboratory studies look good and given that you have not had any recent injury or other distinct trigger for this exacerbation of your chronic pain, there is no indication for emergent imaging at this time. Additionally, your pain is quite global and does not involve a specific focus which would raise more concern for a specific worsening of an underlying condition. At this point in time, you should continue your home medications and continue pursuing follow-up with the Neurologist and pain specialist. Please continue following up with your primary doctor as well. Your prescriptions have been electronically transmitted to the [facility] pharmacy in [place]. Do not drive for the next 8 hours, as you have been given sedating medication in the emergency department. Discharge Date/Time: 07/12/23 11:47
[2023-07-12 11:51] VITALS: BP 126/76; O2SAT 98
== END 2023-07-12 11:47 | disposition home or self-care (01) ==
LOC: ED 09:31
DX: G89.29 Other chronic pain (principal); M54.2 Cervicalgia; M54.50 Low back pain, unspecified; I10 Essential (primary) hypertension
CPT/HCPCS: 96372; 99283; 99284; J1170

== ENCOUNTER 2023-07-27 08:19 | Emergency (ER) | payer MEDICAID ==
[2023-07-27 08:26] VITALS: BP 137/79; O2SAT 99
[2023-07-27] MEDS ORDERED: LIDOCAINE PATCH 4% TOP STA (09:13)
--- NOTE | 2023-07-27 09:18 | XRAY Report ---
PROCEDURE: Ribs w/PA Chest 3+V RT INDICATIONS: trauma TECHNIQUE: 2 views of the ribs were acquired, along with a single view chest. COMPARISON: None. FINDINGS: Surgical changes and devices: None. Bones and chest wall: No fractures or dislocations. No suspicious bony lesions. Overlying soft tis sues appear unremarkable. Lungs and pleura: No pleural effusions or pneumothorax. Lungs appear clear. Mediastinum: Mediastinal contours appear normal. Heart size is normal. IMPRESSION: No visualized acute fracture or dislocation. However, occult injury cannot be excluded. Recommend ester rt interval imaging follow-up in 7-10 days as clinically indicated for additional evaluation. Reviewed by: Porsche Perez MD on 07/27/2023 9:17 AM PST Approved by: Porsche Perez MD on 07/27/2023 9:[address] [facility] Station ID: [id number]
--- NOTE | 2023-07-27 09:23 | ED Physician Documentation ---
History of Present Illness - Stated complaint Stated Complaint: RT SIDE PX,FELL - Chief complaint Chief Complaint: Trauma Ch/Bk - History obtained from History obtained from: Patient - Additonal information Additional information: Patient is a 33-year-old male presenting for evaluation of right-sided rib pain since Tuesday.Patient states that he was walking downstairs when he excellently tripped and fell and hit the right side of his ribs. He reports having pain since then. He does regularly take ibuprofen and Flexeril for chronic neck and back pain and this has not helped. Denies head injury. Review of Systems Constitutional: denies: Fever Cardiac: reports: Chest pain / pressure Respiratory: denies: Dyspnea GI: denies: Abdominal Pain Neurologic: denies: Head injury PD PAST MEDICAL HISTORY - Past Medical History Past Medical History: Yes Cardiovascular: Hypertension, Other Respiratory: None Neuro: None Endocrine/Autoimmune: None GI: None : None HEENT: None Psych: Depression, Anxiety, Post traumatic stress disorder, Other Musculoskeletal: Chronic back pain, Other - Past Surgical History Past Surgical History: No - Present Medications Home Medications: Ambulatory Orders Medication Instructions Recorded Confirmed Citalopram [CeleXA] 10 mg PO DAILY #30 tablet 06/09/23 07/12/23 Cyclobenzaprine HCl 10 mg PO QPM 06/09/23 07/12/23 Gabapentin [Neurontin] 600 mg PO TID 06/09/23 07/12/23 Ibuprofen [Motrin] 800 mg PO Q8HR PRN 06/09/23 07/12/23 traZODone [Desyrel] 50 mg PO HS PRN #12 tablet 06/09/23 07/12/23 HYDROcod/ACETAM 5/325 [[place] 5/325] 1 - 2 tablet PO Q6H PRN #10 tablet 07/12/23 [place] Carbonate 300 mg PO TID 07/12/23 07/12/23 predniSONE [Deltasone] 10 mg PO [id number] #42 tab 07/12/23 Lidocaine Patch 5% [Lidoderm Patch] 1 patch TOP DAILY PRN #10 patch 07/27/23 - Allergies Allergies/Adverse Reactions: Allergies Allergy/AdvReac Type Severity Reaction Status Date / Time tizanidine Allergy Hallucinati Verified 07/27/23 08:26 ons - Social History Does the pt smoke?: No Smoking Status: Never smoker Does the pt drink ETOH?: Yes Does the pt have substance abuse?: No - Immunizations Immunizations are current?: Yes - POLST Patient has POLST: No PD ED PE NORMAL - General General: Alert and oriented X 3, No acute distress, Well developed/nourished - HEENT HEENT: Atraumatic, Moist mucous membranes, Pharynx benign - Neck Neck: Supple, no meningeal sign, No bony TTP - Cardiac Cardiac: RRR, Strong equal pulses, Other (Tenderness to right posterior thoracic wall with no visible deformities, crepitus, bruising. Patient has symmetric chest rise.) - Respiratory Respiratory: No respiratory distress, Clear bilaterally - Derm Derm: Warm and dry - Extremities Extremities: No deformity - Neuro Neuro: Alert and oriented X 3, No motor deficit, Normal speech Eye Opening: Spontaneous Motor: Obeys Commands Verbal: Oriented GCS Score: 15 Results - Vitals Vitals: Vital Signs - 24 hr 07/27/23 08:24 Temperature 36.0 C L Heart Rate 77 Respiratory 20 Rate Blood Pressure 137/79 H O2 Saturation 99 Oxygen O2 Source Room air PD Medical Decision Making - ED course Complexity details: reviewed results, d/w patient ED course: Patient is a 33-year-old male presenting for evaluation of right rib pain after a fall few days ago. Vital signs appear stable. Lung sounds are clear. Chest x-ray which I reviewed is negative for pneumothorax or any visualized rib fracture. Discussed continued supportive care as well as close follow-up if symptoms or not improving. Departure - Departure Disposition: 01 Home, Self Care Clinical Impression: Rib pain on right side Condition: Stable Instructions: ED Contusion Rib Prescriptions: Lidocaine Patch 5% [Lidoderm Patch] 1 patch TOP DAILY PRN #10 patch PRN Reason: pain Comments: Your x-ray does not show signs of a broken rib or collapsed lung from your fall. Continue with anti-inflammatory such as acetaminophen or ibuprofen. You may find ice versus heat also to be helpful. I have also sent a prescription for lidocaine patches to [facility] in [place]. I would expect your symptoms to get better over the course of the next week but if they are not then I would recommend close follow-up with your primary care doctor. Return to the emergency department with worsening symptoms such as increased pain, difficulty breathing. Forms: PCP List Discharge Date/Time: 07/27/23 09:35
== END 2023-07-27 09:35 | disposition home or self-care (01) ==
LOC: ED 08:19
DX: R07.81 Pleurodynia (principal); W01.0XXA Fall on same level from slipping, tripping and stumbling without subsequent striking against object, initial encounter; I10 Essential (primary) hypertension
CPT/HCPCS: 71101; 99283; A9270

== ENCOUNTER 2023-09-09 10:59 | Emergency (ER) | payer MEDICAID ==
[2023-09-09 11:09] VITALS: BP 145/98; O2SAT 100
--- NOTE | 2023-09-09 11:51 | ED Physician Documentation ---
PD HPI LOWER EXT INJURY - Stated complaint Stated Complaint: LT KNEE PX/SWELLING - Chief complaint Chief Complaint: Ext Problem - History obtained from History obtained from: Patient - Additional information Additional information: Patient is a 33-year-old male presenting for evaluation of left knee pain that is been present for the past 4 to 5 days. Patient states that he was rolling around in the middle of the night and woke up with pain. Denies any other trauma or injury. Has had prior issues with this knee. He works in maintenance at the [employer] and has been attempting to work the past few days but 1 is unable to work due to pain today. He does take medications for chronic pain Which he states have not helped his symptoms. Review of Systems Constitutional: denies: Fever Cardiac: denies: Chest pain / pressure Respiratory: denies: Dyspnea GI: denies: Abdominal Pain Musculoskeletal: reports: Joint pain Neurologic: denies: Head injury PD PAST MEDICAL HISTORY - Past Medical History Past Medical History: Yes Cardiovascular: Hypertension, Other Respiratory: None Neuro: None Endocrine/Autoimmune: None GI: None : None HEENT: None Psych: Depression, Anxiety, Post traumatic stress disorder, Other Musculoskeletal: Chronic back pain, Other - Past Surgical History Past Surgical History: No - Present Medications Home Medications: Ambulatory Orders Medication Instructions Recorded Confirmed Cyclobenzaprine HCl 10 mg PO QPM 06/09/23 09/09/23 Gabapentin [Neurontin] 600 mg PO TID 06/09/23 09/09/23 Ibuprofen [Motrin] 800 mg PO Q8HR PRN 06/09/23 09/09/23 traZODone [Desyrel] 50 mg PO HS PRN #12 tablet 06/09/23 09/09/23 [place] Carbonate 300 mg PO TID 07/12/23 09/09/23 - Allergies Allergies/Adverse Reactions: Allergies Allergy/AdvReac Type Severity Reaction Status Date / Time tizanidine Allergy Hallucinati Verified 09/09/23 11:05 ons - Social History Does the pt smoke?: No Smoking Status: Never smoker Does the pt drink ETOH?: Yes Does the pt have substance abuse?: No - Immunizations Immunizations are current?: Yes - POLST Patient has POLST: No PD ED PE NORMAL - General General: Alert and oriented X 3, No acute distress, Well developed/nourished - HEENT HEENT: Atraumatic, Moist mucous membranes, Pharynx benign - Neck Neck: Supple, no meningeal sign - Cardiac Cardiac: Strong equal pulses - Respiratory Respiratory: No respiratory distress - Derm Derm: Warm and dry - Extremities Extremities: No deformity, Other (Mild swelling to left knee, pain with range of motion, no laxity or instability, no overlying erythema or warmth; Compartments of extremity are soft, distal pulses intact, motor and sensation grossly intact) - Neuro Neuro: Alert and oriented X 3, No motor deficit, No sensory deficit, Normal speech Results - Vitals Vitals: Vital Signs - 24 hr 09/09/23 11:03 Temperature 36.4 C L Heart Rate 78 Respiratory 20 Rate Blood Pressure 145/98 H O2 Saturation 100 Oxygen O2 Source Room air PD Medical Decision Making - ED course ED course: Patient with left knee pain after rolling in bed and having pain for the last few days. Exacerbated at work which requires him to be standing and bending. X-ray was obtained which I reviewed I see no fracture or dislocation. PACS system is down but per the radiologist also did not see any acute findings.No signs of joint infection. Neurovascularly intact. Patient given knee immobilizer and crutches. Counseled on continued supportive care as well as need for follow-up with primary care provider. Departure - Departure Disposition: 01 Home, Self Care Clinical Impression: Left knee injury Condition: Stable Instructions: ED Knee Pain UKO Comments: Your knee x-ray does not show a fracture or dislocation. However there are other structures that do not show up on x-rays that could be injured. I would recommend using the knee immobilizer and crutches as well as ice, elevation, anti-inflammatory such as ibuprofen or acetaminophen and close follow-up with your primary care provider. Return to the ER with any worsening. Forms: PCP List, Activity restrictions Discharge Date/Time: 09/09/23 12:00
[2023-09-09] MEDS: ACETAMINOPHEN 500 MG TABLET PO STA (11:59)
[2023-09-09] MEDS: LIDOCAINE PATCH 5% TOP STA (11:59)
== END 2023-09-09 12:00 | disposition home or self-care (01) ==
LOC: ED 10:59
DX: S89.92XA Unspecified injury of left lower leg, initial encounter (principal); X58.XXXA Exposure to other specified factors, initial encounter; I10 Essential (primary) hypertension
CPT/HCPCS: 73562; 99283; A9270

== ENCOUNTER 2023-11-14 18:42 | Emergency (ER) | payer MEDICAID ==
--- NOTE | 2023-11-14 20:12 | ED Physician Documentation ---
PD HPI HEADACHE - Stated complaint Stated Complaint: MERCADO - Chief complaint Chief Complaint: Neuro - History obtained from History obtained from: Patient - Additional information Additional information: He has been having increasing headaches over the last months, is being seen by neurology in [place] with presumptive diagnosis of either migraines or potential cervical spine issues. Current headache in the occiput for the last 4 days, gradual in onset not associated with fevers. It is associated with nausea and 1 episode of emesis yesterday. He has been using Imitrex at home without relief. PD PAST MEDICAL HISTORY - Past Medical History Cardiovascular: Hypertension, Other Respiratory: None Neuro: Headaches Endocrine/Autoimmune: None GI: None : None HEENT: None Psych: Depression, Anxiety, Post traumatic stress disorder, Other Musculoskeletal: Chronic back pain, Other - Past Surgical History Past Surgical History: No - Present Medications Home Medications: Ambulatory Orders Medication Instructions Recorded Confirmed Cyclobenzaprine HCl 10 mg PO QPM 06/09/23 09/09/23 Gabapentin [Neurontin] 600 mg PO TID 06/09/23 09/09/23 Ibuprofen [Motrin] 800 mg PO Q8HR PRN 06/09/23 09/09/23 traZODone [Desyrel] 50 mg PO HS PRN #12 tablet 06/09/23 09/09/23 [place] Carbonate 300 mg PO TID 07/12/23 09/09/23 - Allergies Allergies/Adverse Reactions: Allergies Allergy/AdvReac Type Severity Reaction Status Date / Time tizanidine Allergy Hallucinati Verified 11/14/23 18:45 ons - Social History Does the pt smoke?: No Smoking Status: Never smoker Does the pt drink ETOH?: Yes Does the pt have substance abuse?: No - Immunizations Immunizations are current?: Yes - POLST Patient has POLST: No PD ED PE NORMAL - Vitals Vital signs reviewed: Yes - General General: Alert and oriented X 3, Other (Light sensitive and uncomfortable) - HEENT HEENT: PERRL, EOMI - Neck Neck: Supple, no meningeal sign, No bony TTP - Neuro Neuro: Alert and oriented X 3, No motor deficit, No sensory deficit, Normal speech Eye Opening: Spontaneous Motor: Obeys Commands Verbal: Oriented GCS Score: 15 - Psych Psych: Normal mood, Normal affect Results - Vitals Vitals: Vital Signs - 24 hr 11/14/23 11/14/23 18:45 20:03 Temperature 36.8 C Heart Rate 62 70 Respiratory 16 19 Rate Blood Pressure 147/86 H 152/85 H O2 Saturation 99 97 Oxygen O2 Source Room air PD Medical Decision Making - ED course ED course: The headache is gradual in onset and similar to prior headaches. As such I doubt subarachnoid hemorrhage. There are no infectious symptoms such as fever or stiff neck to make me suspect meningitis. No carbon monoxide exposure by history. After the administration of IV Reglan, Toradol, and Benadryl his pain was much better and requested discharge. I did do a lithium level which is pending on discharge but I will call him if it is problematic i.e. high. Departure - Departure Disposition: Home, Self Care Clinical Impression: Migraine Condition: Good Record reviewed to determine appropriate education?: Yes Instructions: ED Headache Migraine Comments: You were seen today for an apparent migraine. You received a cocktail of medications that is frequently used for migraines, specifically Reglan, Benadryl, and Toradol after which she got significant relief. Your lithium level is pending on discharge and I will call you if it is high. If it is low to therapeutic I would not necessarily call as that does not require specific intervention in the emergency department. Follow-up with your neurologist, next available appointment. Return for new or worsening symptoms. Do not drink or drive tonight. Forms: PCP List
[2023-11-14] MEDS: SODIUM CHLORIDE 0.9% 1,000 ML IV STA (20:24)
[2023-11-14] MEDS: METOCLOPRAMIDE 10 MG/2 ML VIAL IVP STA (20:24)
[2023-11-14] MEDS: diphenhydrAMINE INJ 50 MG/ML VIAL IVP STA (20:25)
[2023-11-14] MEDS: KETOROLAC 15 MG/ML VIAL IVP STA (20:25)
[2023-11-14 20:57] LABS: LITHIUM 0.12 mmol/L
[2023-11-14 21:04] VITALS: BP 124/74; O2SAT 98
== END 2023-11-14 21:05 | disposition home or self-care (01) ==
LOC: ED 18:42
DX: G43.909 Migraine, unspecified, not intractable, without status migrainosus (principal)
CPT/HCPCS: 36415; 80178; 96374; 96375; 99283; J1200; J2765

== ENCOUNTER 2023-12-06 12:47 | Outpatient (CLI) | payer MEDICAID | END 2023-12-06 12:48 | disposition home or self-care (01) | LOC: CAM 12:47 | PROVIDERS: ATTEND Family Medicine | DX: M54.2 Cervicalgia (principal); M53.3 Sacrococcygeal disorders, not elsewhere classified; M51.16 Intervertebral disc disorders with radiculopathy, lumbar region; M54.59 Other low back pain; G89.29 Other chronic pain | CPT/HCPCS: 97810; 97811 ==

== ENCOUNTER 2023-12-25 18:52 | Emergency (ER) | payer MEDICAID ==
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
[2023-12-25] MEDS: CYCLOBENZAPRINE 10 MG Prepack 2 PO PRN (20:35)
[2023-12-25 20:44] VITALS: BP 124/70; O2SAT 100
== END 2023-12-25 20:37 | disposition home or self-care (01) ==
LOC: ED 18:52
DX: M54.10 Radiculopathy, site unspecified (principal); M62.838 Other muscle spasm
CPT/HCPCS: 99283

== ENCOUNTER 2023-12-27 06:07 | Emergency (ER) | payer MEDICAID, OTHER ==
[2023-12-27 06:15] VITALS: BP 142/86; O2SAT 100
--- NOTE | 2023-12-27 06:27 | ED Physician Documentation ---
History of Present Illness - Stated complaint Stated Complaint: BURN - Chief complaint Chief Complaint: Burn - History obtained from History obtained from: Patient - Additonal information Additional information: Patient is a 33-year-old male presenting for evaluation of whitney from hot tea that occurred this morning. Patient states he was at work at [employer] when a large carafe of hot tea spilled onto him primarily affecting his right forearm and left foot. His tetanus is up-to-date. He was recently seen here with radicular pain in the right arm and states he has had some improvement in range of motion Since starting the steroids and using the compression sleeve. Review of Systems Skin: reports: Other (Burn) PD PAST MEDICAL HISTORY - Past Medical History Cardiovascular: Hypertension, Other Respiratory: None Neuro: Headaches Endocrine/Autoimmune: None GI: None : None HEENT: None Psych: Depression, Anxiety, Post traumatic stress disorder, Other Musculoskeletal: Chronic back pain, Other - Past Surgical History Past Surgical History: No - Present Medications Home Medications: Ambulatory Orders Medication Instructions Recorded Confirmed Cyclobenzaprine HCl 10 mg PO QPM 06/09/23 09/09/23 Gabapentin [Neurontin] 600 mg PO TID 06/09/23 09/09/23 Ibuprofen [Motrin] 800 mg PO Q8HR PRN 06/09/23 09/09/23 traZODone [Desyrel] 50 mg PO HS PRN #12 tablet 06/09/23 09/09/23 [place] Carbonate 300 mg PO TID 07/12/23 09/09/23 Cyclobenzaprine [Flexeril] 10 mg PO TID PRN #20 tablet 12/25/23 predniSONE [Deltasone] 20 mg PO [id number] #21 tab 12/25/23 Bacitracin Zinc Oint 1 applic TOP BID #1 each 12/27/23 HYDROcod/ACETAM 5/325 [[place] 5/325] 1 tablet PO Q6H PRN #12 tablet 12/27/23 - Allergies Allergies/Adverse Reactions: Allergies Allergy/AdvReac Type Severity Reaction Status Date / Time tizanidine Allergy Hallucinati Verified 12/27/23 06:10 ons - Social History Does the pt smoke?: No Smoking Status: Never smoker Does the pt drink ETOH?: Yes Does the pt have substance abuse?: No - Immunizations Immunizations are current?: Yes - POLST Patient has POLST: No PD ED PE NORMAL - General General: Alert and oriented X 3, No acute distress, Well developed/nourished - HEENT HEENT: Atraumatic - Cardiac Cardiac: Strong equal pulses - Respiratory Respiratory: No respiratory distress - Derm Derm: Other (Blanching erythema over the dorsum of the distal right forearm, no blistering, normal range of motion at joints, no involvement of her hand. Small area of erythema to the dorsum of the left foot) Results - Vitals Vitals: Vital Signs - 24 hr 12/27/23 06:10 Temperature 35.9 C L Heart Rate 103 H Respiratory 20 Rate Blood Pressure 142/86 H O2 Saturation 100 Oxygen O2 Source Room air PD Medical Decision Making - ED course ED course: Patient with superficial thickness whitney to right forearm and left foot. No involvement over joints and patient has good range of motion. No blistering. Wounds are clean. Overall affected area is quite small and less than 5%.Patient counseled on burn care including use of bacitracin and pain medication as needed . Patient understands importance of close follow-up. Departure - Departure Disposition: 01 Home, Self Care Clinical Impression: Burn of forearm, first degree Qualifiers: Encounter type: initial encounter Laterality: right Qualified Code(s): T22.111A - Burn of first degree of right forearm, initial encounter Burn of foot, left, first degree Qualifiers: Encounter type: initial encounter Qualified Code(s): T25.122A - Burn of first degree of left foot, initial encounter Condition: Stable Instructions: ED Burn Scald Prescriptions: Bacitracin Zinc Oint 1 applic TOP BID #1 each HYDROcod/ACETAM 5/325 [[place] 5/325] 1 tablet PO Q6H PRN #12 tablet PRN Reason: Pain Comments: You were evaluated for burn injuries. It is important to keep the wounds clean and dry. I sent a prescription for bacitracin which is an antibiotic ointment to [facility] in [place]. Please apply this ointment twice a day to affected areas and cover the wounds with clean dressings. I have also sent a small amount of narcotic pain medication for discomfort. I am prescribing a short course of narcotic pain medication for you. These are potentially dangerous and addictive medications that should be used carefully. These medications may constipate you. Take an [id number] stool softener (docusate) twice daily with plenty of water while taking these medications. If you go 24 hours without a bowel movement, take [id number] miralax, per package instructions. Do not drink or drive while taking these medications. If you received narcotic or sedating medications while in the emergency department, do not drive for 24 hours. Store this medication in a safe, secure place and out of reach of children. It is a violation of federal law to give or sell this medication to another person or to use in a manner other than prescribed. The ED will not refill narcotic prescriptions, including prescriptions lost or stolen. To dispose of unwanted medications: 1. [facility] at [address] in [place] has a medication drop box. They accept prescription medications (in pill form) Tuesday through Tuesday 9:00 a.m. to 5:00 p.m. 2. [facility] [employer] accepts prescription medications (in pill form only) for disposal year round. Call for more information. 3. Contact the [facility] for the next [facility] sponsored prescription drug collection event. , [phone], or [phone]; Note that many narcotic pain relievers also contain Tylenol/acetaminophen. Please ensure that your total dose of acetaminophen from all sources does not exceed 3 g (3000 mg) per day. You should have close follow-up in the next week for reevaluation of your whitney. Return to the ER with any worsening symptoms. Forms: PCP List, Activity restrictions
[2023-12-27] MEDS: BACITRACIN ZINC OINT 1 PACKET TOP STA (06:44)
[2023-12-27] MEDS: HYDROcod/ACETAM 5/325 MG TABLET PO STA (06:44)
== END 2023-12-27 06:54 | disposition home or self-care (01) ==
LOC: ED 06:07
DX: T22.111A Burn of first degree of right forearm, initial encounter (principal); T25.122A Burn of first degree of left foot, initial encounter; X10.0XXA Contact with hot drinks, initial encounter; Y92.511 Restaurant or cafe as the place of occurrence of the external cause; Y99.0 Civilian activity done for income or pay
CPT/HCPCS: 1040M; A9270; 99283

== ENCOUNTER 2023-12-27 12:49 | Outpatient (CLI) | payer MEDICAID | END 2023-12-27 12:50 | disposition home or self-care (01) | LOC: CAM 12:49 | PROVIDERS: ATTEND Family Medicine | DX: M54.2 Cervicalgia (principal); M53.3 Sacrococcygeal disorders, not elsewhere classified; M51.16 Intervertebral disc disorders with radiculopathy, lumbar region; M54.50 Low back pain, unspecified; G89.29 Other chronic pain | CPT/HCPCS: 97810; 97811 ==

== ENCOUNTER 2024-01-03 12:52 | Outpatient (CLI) | payer MEDICAID | END 2024-01-03 12:53 | disposition home or self-care (01) | LOC: CAM 12:52 | PROVIDERS: ATTEND Family Medicine | DX: M54.2 Cervicalgia (principal); M53.3 Sacrococcygeal disorders, not elsewhere classified; M51.9 Unspecified thoracic, thoracolumbar and lumbosacral intervertebral disc disorder; M51.16 Intervertebral disc disorders with radiculopathy, lumbar region; M54.59 Other low back pain; G89.29 Other chronic pain | CPT/HCPCS: 97810; 97811 ==

== ENCOUNTER 2024-01-10 13:07 | Outpatient (CLI) | payer MEDICAID | END 2024-01-10 13:08 | disposition home or self-care (01) | LOC: CAM 13:07 | PROVIDERS: ATTEND Family Medicine | DX: M54.2 Cervicalgia (principal); M53.3 Sacrococcygeal disorders, not elsewhere classified; M51.9 Unspecified thoracic, thoracolumbar and lumbosacral intervertebral disc disorder; M51.16 Intervertebral disc disorders with radiculopathy, lumbar region; M54.50 Low back pain, unspecified; G89.29 Other chronic pain | CPT/HCPCS: 97810; 97811 ==

== ENCOUNTER 2024-01-21 14:09 | Emergency (ER) | payer MEDICAID ==
[2024-01-21 15:24] LABS: BASOPHILS # (AUTO) 0.1 10^3/uL (0.0-0.1); BASOPHILS % (AUTO) 0.7 %; EOSINOPHILS # (AUTO) 0.2 10^3/uL (0.0-0.7); EOSINOPHILS % (AUTO) 2.5 %; HCT - HEMATOCRIT 48.9 % (42.0-52.0); MEAN CORPUSCULAR HEMOGLOBIN 29.8 pg (27.0-31.0); MEAN CORPUSCULAR HGB CONC 32.7 g/dL (32.0-36.0); MEAN CORPUSCULAR VOLUME 91.1 fL (80.0-94.0); MEAN PLATELET VOLUME 11.4 fL (7.4-11.4); MONOCYTES # (AUTO) 0.6 10^3/uL (0.0-1.0); MONOCYTES % (AUTO) 7.3 %; NEUTROPHILS # (AUTO) 4.3 10^3/uL (1.5-6.6); NEUTROPHILS % (AUTO) 52.4 %; PLT - PLATELET COUNT 239 10^3/uL (130-450); RED BLOOD COUNT 5.37 10^6/uL (4.70-6.10); RED CELL DISTRIBUTION WIDTH 13.2 % (12.0-15.0); WHITE BLOOD COUNT 8.1 x10^3/uL (4.8-10.8)
--- NOTE | 2024-01-21 15:25 | ED Physician Documentation ---
History of Present Illness - Stated complaint Stated Complaint: PX WHEN BREATHING,HEART PALPITATIONS - Chief complaint Chief Complaint: Resp - History obtained from History obtained from: Patient - History of Present Illness Timing: How many weeks ago (Several) Pain level max: 2 Pain level now: 0 - Additonal information Additional information: 33-year-old male presents to the emergency department stating he has had palpitations for several months. He states he is awaiting a Zio patch and a cardiac echo. He states he occasionally has difficulty breathing and feels a sharp pain in his chest with breathing. No cough. Or congestion. No history of lung issues. Nothing seems to make it better or worse. He states he will drink an energy drink a few times a week, does not seem to change his symptoms much. Does not smoke. Does not vape. No drug use. No recent travel. No leg swelling. No history of blood clots. No history of PE or young ACS in the family. Review of Systems Constitutional: denies: Fever, Chills GI: denies: Vomiting, Diarrhea Skin: denies: Rash Musculoskeletal: denies: Neck pain, Back pain Neurologic: denies: Headache PD PAST MEDICAL HISTORY - Past Medical History Cardiovascular: Hypertension, Other Respiratory: None Neuro: Headaches Endocrine/Autoimmune: None GI: None : None HEENT: None Psych: Depression, Anxiety, Post traumatic stress disorder, Other Musculoskeletal: Chronic back pain, Other - Past Surgical History Past Surgical History: No - Present Medications Home Medications: Ambulatory Orders Medication Instructions Recorded Confirmed Cyclobenzaprine HCl 10 mg PO QPM 06/09/23 09/09/23 Gabapentin [Neurontin] 600 mg PO TID 06/09/23 09/09/23 Ibuprofen [Motrin] 800 mg PO Q8HR PRN 06/09/23 09/09/23 traZODone [Desyrel] 50 mg PO HS PRN #12 tablet 06/09/23 09/09/23 [place] Carbonate 300 mg PO TID 07/12/23 09/09/23 Cyclobenzaprine [Flexeril] 10 mg PO TID PRN #20 tablet 12/25/23 predniSONE [Deltasone] 20 mg PO [id number] #21 tab 12/25/23 Bacitracin Zinc Oint 1 applic TOP BID #1 each 12/27/23 HYDROcod/ACETAM 5/325 [[place] 5/325] 1 tablet PO Q6H PRN #12 tablet 12/27/23 Albuterol Sulf [Ventolin Hfa 1 - 2 puffs INH Q4HR PRN #1 each 01/21/24 Inhaler] predniSONE [Deltasone] 40 mg PO DAILY #10 tablet 01/21/24 - Allergies Allergies/Adverse Reactions: Allergies Allergy/AdvReac Type Severity Reaction Status Date / Time tizanidine Allergy Hallucinati Verified 01/21/24 14:37 ons - Social History Does the pt smoke?: No Smoking Status: Never smoker Does the pt drink ETOH?: Yes Does the pt have substance abuse?: No - Immunizations Immunizations are current?: Yes - POLST Patient has POLST: No PD ED PE NORMAL - Vitals Vital signs reviewed: Yes - General General: Alert and oriented X 3, No acute distress - HEENT HEENT: Moist mucous membranes - Neck Neck: Supple, no meningeal sign - Cardiac Cardiac: RRR, Strong equal pulses - Respiratory Respiratory: No respiratory distress, Clear bilaterally - Abdomen Abdomen: Soft, Non tender, Non distended - Derm Derm: Warm and dry - Extremities Extremities: No edema, No calf tenderness / cord - Neuro Neuro: Alert and oriented X 3 - Psych Psych: Normal mood, Normal affect Results - Vitals Vitals: Vital Signs - 24 hr 01/21/24 01/21/24 01/21/24 14:37 15:30 16:22 Temperature 36.7 C Heart Rate 86 91 78 Respiratory 16 18 18 Rate Blood Pressure 143/97 H 148/86 H O2 Saturation 99 98 Oxygen O2 Source Room air - EKG (time done) 1504 EKG releavant findings:: EKG personally interpreted by author of this note. Relevant findings are: Rate: Rate (enter#) (89) Rhythm: NSR [place]: Normal Intervals: Normal [place] QRS: Normal Ischemia: ST elevation c/w repol - Labs Labs: Laboratory Tests 01/21/24 01/21/24 15:20 15:20 WBC 8.1 RBC 5.37 Hgb 16.0 Hct 48.9 MCV 91.1 MCH 29.8 MCHC 32.7 RDW 13.2 Plt Count 239 MPV 11.4 Neut # (Auto) 4.3 Lymph # (Auto) 3.0 [place] # (Auto) 0.6 Eos # (Auto) 0.2 Baso # (Auto) 0.1 Absolute Nucleated RBC 0.00 Nucleated RBC % 0.0 Sodium 139 Potassium 3.9 Chloride 104 Carbon Dioxide 28 Anion Gap 7.0 BUN 12 Creatinine 1.1 Estimated GFR (MDRD) 78 L Glucose 91 Calcium 9.7 Total Bilirubin 0.4 AST 22 ALT 41 Alkaline Phosphatase 86 Troponin I High Sens 5.3 Total Protein 7.4 Albumin 4.5 Globulin 2.9 Albumin/Globulin Ratio 1.6 Lipase 17 - Rads (name of study) cxr Relevant Findings:: Final report received, See rad report PD Medical Decision Making - ED course Complexity details: reviewed results, re-evaluated patient, considered differential, d/w patient ED course: 33-year-old male, well-appearing, nontoxic. Afebrile. No hypoxia. No respiratory distress. No acute findings on EKG, laboratory testing, chest x- ray. Feels better after albuterol. We will prescribe an inhaler for home, possible precordial catch syndrome? Possible pleurisy? No evidence of ACS, PE. We will also trial him on steroids for home. No evidence of pericarditis. Patient is well-appearing, nontoxic. Afebrile. No hypoxia. No respiratory distress. Patient counseled regarding signs and symptoms for which I believe and urgent re-evaluation would be necessary. Patient with good understanding of and agreement to plan and is comfortable going home at this time This document was made in part using voice recognition software. While efforts are made to proofread this document, sound alike and grammatical errors may occur. Departure - Departure Disposition: 01 Home, Self Care Clinical Impression: Pleurisy, Palpitation, Precordial catch syndrome Condition: Good Instructions: ED Palpitations, ED Chest Pain Pleurisy Follow-Up: Sonal Gustafson MD [Primary Care Provider] - Within 1 week Prescriptions: Albuterol Sulf [Ventolin Hfa Inhaler] 1 - 2 puffs INH Q4HR PRN #1 each PRN Reason: Shortness Of Air/Wheezing predniSONE [Deltasone] 40 mg PO DAILY #10 tablet Comments: Your prescriptions were sent to [facility] in [place]. Please use the medications as prescribed. Please follow-up with your doctor for further care. Please return if you worsen. Forms: PCP List Discharge Date/Time: 01/21/24 16:22
[2024-01-21] MEDS: ALBUTEROL NEB 2.5 MG/3 ML INH STA (15:36)
[2024-01-21 15:42] LABS: ALBUMIN 4.5 g/dL (3.2-5.5); ALBUMIN/GLOBULIN RATIO 1.6 (1.0-2.2); BILIRUBIN,TOTAL 0.4 mg/dL (0.2-1.0); CALCIUM 9.7 mg/dL (8.5-10.3); CREATININE 1.1 mg/dL (0.6-1.3); POTASSIUM 3.9 mmol/L (3.5-4.5); TOTAL PROTEIN 7.4 g/dL (6.4-8.9)
[2024-01-21 15:45] LABS: TROPONIN I HIGH SENSITIVITY 5.3 ng/L (2.3-19.7)
--- NOTE | 2024-01-21 16:25 | XRAY Report ---
PROCEDURE: Chest 1V INDICATIONS: Chest pain TECHNIQUE: One view of the chest was acquired. COMPARISON: 07/27/2023 FINDINGS: Surgical changes and devices: None. Lungs and pleura: An incomplete inspiratory result is noted, with low lung volumes and crowding of t he vascular markings. No focal infiltrates are seen. No large pneumothorax or large pleural effusion can be seen. Mediastinum: Mediastinal contours appear normal. Heart size is normal. Bones and chest wall: No suspicious bony lesions. Overlying soft tissues appear unremarkable. IMPRESSION: No acute cardiopulmonary process. Reviewed by: Jitendra Sorto MD on 01/21/2024 3:24 PM AKDT Approved by: Jitendra Sorto MD on 01/21/2024 3:24 PM AKDT Station ID: [id number]
[2024-01-21 16:27] VITALS: BP 148/86; O2SAT 98
== END 2024-01-21 16:22 | disposition home or self-care (01) ==
LOC: ED 14:09
DX: R09.1 Pleurisy (principal); R00.2 Palpitations; R07.2 Precordial pain
CPT/HCPCS: 36415; 80053; 83690; 84484; 85025; 93005; 94640; 94664; 99284

== ENCOUNTER 2024-02-12 13:47 | Emergency (ER) | payer MEDICAID ==
--- NOTE | 2024-02-12 15:23 | XRAY Report ---
PROCEDURE: Chest 2V INDICATIONS: pain with respiration TECHNIQUE: 2 views of the chest were acquired. COMPARISON: None. FINDINGS: Surgical changes and devices: 02/21/2024. Lungs and pleura: No pleural effusions or pneumothorax. Lungs are clear. Mediastinum: Mediastinal contours appear normal. Heart size is normal. Bones and chest wall: No suspicious bony lesions. Overlying soft tissues appear unremarkable. IMPRESSION: No acute cardiopulmonary process. Reviewed by: Nini Santana MD on 02/12/2024 2:22 PM AKDT Approved by: Nini Santana MD on 02/12/2024 2:22 PM AKDT Station ID: [id number]
--- NOTE | 2024-02-12 16:18 | ED Physician Documentation ---
History of Present Illness - Stated complaint Stated Complaint: RT SIDE PX/BACK PX, PX ON BREATHING - Chief complaint Chief Complaint: Resp - History obtained from History obtained from: Patient - History of Present Illness Timing: Prior to arrival - Additonal information Additional information: Patient is a 33-year-old male with no significant past medical history presents to the emergency department with right-sided chest pain. Patient notes symptoms have been going on for about 2 days now. He notes severe right chest pain and severe pain with taking a deep breath. He denies any fevers or chills. He denies any cough. He notes his pain makes him feel short of breath. He was diagnosed with pleurisy a few weeks ago after being seen here in the emergency department with severe chest pain in the anterior region. He had a full workup at that time that was negative. He denies any nausea vomiting dizziness or lightheadedness with his symptoms.He denies any recent trauma to the area. He previously was here with his pleurisy received breathing treatment that did help his symptoms and has an albuterol inhaler at home but does not feel it has wors ened improved his symptoms.Patient has no history of smoking or vaping. He has no history of COPD or asthma. No history of coronary artery disease. He notes back in 2019 he was diagnosed with pericarditis but symptoms improved shortly after and he does not feel symptoms feel similar. He has not found anything that makes his symptoms better or worse. He was at rest when his right side pain came on. He denies any abdominal pain no nausea no dysuria or hematuria no changes in bowel movements. PD PAST MEDICAL HISTORY - Past Medical History Past Medical History: Yes Cardiovascular: Hypertension, Other Respiratory: None Neuro: Headaches Endocrine/Autoimmune: None GI: None : None HEENT: None Psych: Depression, Anxiety, Post traumatic stress disorder, Other Musculoskeletal: Chronic back pain, Other - Past Surgical History Past Surgical History: No - Present Medications Home Medications: Ambulatory Orders Medication Instructions Recorded Confirmed Cyclobenzaprine HCl 10 mg PO QPM 06/09/23 09/09/23 Gabapentin [Neurontin] 600 mg PO TID 06/09/23 09/09/23 Ibuprofen [Motrin] 800 mg PO Q8HR PRN 06/09/23 09/09/23 traZODone [Desyrel] 50 mg PO HS PRN #12 tablet 06/09/23 09/09/23 [place] Carbonate 300 mg PO TID 07/12/23 09/09/23 Cyclobenzaprine [Flexeril] 10 mg PO TID PRN #20 tablet 12/25/23 predniSONE [Deltasone] 20 mg PO [id number] #21 tab 12/25/23 Bacitracin Zinc Oint 1 applic TOP BID #1 each 12/27/23 HYDROcod/ACETAM 5/325 [[place] 5/325] 1 tablet PO Q6H PRN #12 tablet 12/27/23 Albuterol Sulf [Ventolin Hfa 1 - 2 puffs INH Q4HR PRN #1 each 01/21/24 Inhaler] predniSONE [Deltasone] 40 mg PO DAILY #10 tablet 01/21/24 Lidocaine Patch 5% [Lidoderm Patch] 1 patch TOP DAILY PRN #10 patch 02/12/24 Naproxen 250 mg PO BID PRN #15 tablet 02/12/24 - Allergies Allergies/Adverse Reactions: Allergies Allergy/AdvReac Type Severity Reaction Status Date / Time tizanidine Allergy Hallucinati Verified 02/12/24 14:05 ons - Social History Does the pt smoke?: No Smoking Status: Never smoker Does the pt drink ETOH?: Yes Does the pt have substance abuse?: No - Immunizations Immunizations are current?: Yes - POLST Patient has POLST: No PD ED PE NORMAL - Vitals Vital signs reviewed: Yes - General General: Alert and oriented X 3 - HEENT HEENT: Atraumatic - Neck Neck: Supple, no meningeal sign - Cardiac Cardiac: RRR, No murmur, No gallop, No rub - Respiratory Respiratory: No respiratory distress, Clear bilaterally, Other (Reproducible right-sided lateral chest pain on palpation. No signs of rash bruising or swelling appreciated to this area.) - Abdomen Abdomen: Normal bowel sounds - Male Male : Other - Back Back: No CVA TTP, No spinal TTP - Derm Derm: Normal color, No rash - Extremities Extremities: No deformity - Neuro Neuro: Alert and oriented X 3 Eye Opening: Spontaneous Motor: Obeys Commands Verbal: Oriented GCS Score: 15 Results - Vitals Vitals: Vital Signs - 24 hr 02/12/24 02/12/24 14:02 16:37 Temperature 36.4 C L Heart Rate 83 79 Respiratory 20 16 Rate Blood Pressure 146/99 H O2 Saturation 97 Oxygen O2 Source Room air - Labs Labs: Laboratory Tests 02/12/24 02/12/24 16:41 16:41 WBC 10.6 RBC 5.39 Hgb 15.8 Hct 49.1 MCV 91.1 MCH 29.3 MCHC 32.2 RDW 12.8 Plt Count 238 MPV 11.9 H Neut # (Auto) 7.0 H Lymph # (Auto) 2.9 [place] # (Auto) 0.5 Eos # (Auto) 0.2 Baso # (Auto) 0.0 Absolute Nucleated RBC 0.00 Nucleated RBC % 0.0 Sodium 138 Potassium 4.4 Chloride 103 Carbon Dioxide 29 Anion Gap 6.0 BUN 12 Creatinine 1.2 Estimated GFR (MDRD) 71 L Glucose 93 Calcium 9.9 Total Bilirubin 0.8 AST 34 ALT 56 Alkaline Phosphatase 75 Troponin I High Sens 2.6 Total Protein 7.2 Albumin 4.3 Globulin 2.9 Albumin/Globulin Ratio 1.5 Lipase 15 - Rads (name of study) 2-view CXR Relevant Findings:: EMP independent interpretation of test (No acute cardiopulmonary findings) PD Medical Decision Making - ED course Complexity details: reviewed old records, reviewed results ED course: Patient is a 33-year-old male presenting to the emergency department with right sided chest pain. He notes symptoms have been going on for 2 days persistent he has not found anything that makes his symptoms better or worse other than taking a deep breath in. He feels his symptoms are causing him to be short of breath. He denies any wheezing stridor albuterol inhaler at home with no significant relief. No recent trauma to the area. He was seen a few weeks ago for similar symptoms diagnosed with pleurisy and started on steroids and inhaler at home. He notes this improved his symptoms. He is scheduled in the outpatient setting for stress test and echocardiograms but has been unable to get them due to history of insurance problems. He notes this was ordered for history of palpitations and severe anterior chest pain that occurred prior to these right sided rib pain. Vitals were stable on arrival patient is nonhypoxic afebrile. Physical exam shows reproducible chest pain on right side over ribs on palpation no swelling no rash no bruising noted to this area. Is labs obtained here in the emergency department show no leukocytosis hemoglobin is stable. Patient is PERC negative and EKG shows no acute changes from previous EKG obtained a few months ago. No elevation in troponin. Patient was given breathing treatment Toradol and lidocaine patches here in the emergency department. He notes this did improve some of his symptoms. However he still has reproducible right rib pain. Dis cussed with patient symptoms could be secondary to costochondritis given reproducible tenderness. He was instructed to follow-up with his PCP in outpatient setting and his financial services specialist who is ordered the echo and stress test in outpatient setting. Patient given strict return precautions and is agreeable with this plan. Departure - Departure Disposition: 01 Home, Self Care Clinical Impression: Rib pain on right side, Pleuritic chest pain, Costochondritis Condition: Good Instructions: ED Chest Pain NonCardiac Comments: I have sent more pain medications to your pharmacy to see if this will help with your pain symptoms could be secondary to costochondritis with which is inflammation of rib pain. You should take these medications to see if these improve your symptoms continue to monitor for any worsening pain difficulty breathing dizziness or lightheadedness you should return to the emergency department. Forms: PCP List
[2024-02-12] MEDS: IPRATROPIUM/ALBUTEROL 3 ML NEB INH STA (16:31)
[2024-02-12 16:46] LABS: BASOPHILS % (AUTO) 0.3 %; EOSINOPHILS # (AUTO) 0.2 10^3/uL (0.0-0.7); EOSINOPHILS % (AUTO) 1.8 %; HCT - HEMATOCRIT 49.1 % (42.0-52.0); HGB - HEMOGLOBIN 15.8 g/dL (14.0-18.0); LYMPHOCYTES # (AUTO) 2.9 10^3/uL (1.5-3.5); MEAN CORPUSCULAR HEMOGLOBIN 29.3 pg (27.0-31.0); MEAN CORPUSCULAR HGB CONC 32.2 g/dL (32.0-36.0); MEAN CORPUSCULAR VOLUME 91.1 fL (80.0-94.0); MEAN PLATELET VOLUME 11.9 fL (7.4-11.4); MONOCYTES # (AUTO) 0.5 10^3/uL (0.0-1.0); MONOCYTES % (AUTO) 4.6 %; PLT - PLATELET COUNT 238 10^3/uL (130-450); RED BLOOD COUNT 5.39 10^6/uL (4.70-6.10); RED CELL DISTRIBUTION WIDTH 12.8 % (12.0-15.0); WHITE BLOOD COUNT 10.6 x10^3/uL (4.8-10.8)
[2024-02-12 17:01] LABS: ALBUMIN 4.3 g/dL (3.2-5.5); ALBUMIN/GLOBULIN RATIO 1.5 (1.0-2.2); BILIRUBIN,TOTAL 0.8 mg/dL (0.2-1.0); CALCIUM 9.9 mg/dL (8.5-10.3); CREATININE 1.2 mg/dL (0.6-1.3); POTASSIUM 4.4 mmol/L (3.5-4.5); TOTAL PROTEIN 7.2 g/dL (6.4-8.9)
[2024-02-12 17:07] LABS: TROPONIN I HIGH SENSITIVITY 2.6 ng/L (2.3-19.7)
[2024-02-12] MEDS: LIDOCAINE PATCH 4% TOP STA (17:22)
[2024-02-12] MEDS: KETOROLAC 15 MG/ML VIAL IM STA (17:26)
[2024-02-12] MEDS: KETOROLAC 15 MG/ML VIAL IVP STA (17:27)
[2024-02-12 18:40] VITALS: BP 136/79; O2SAT 98
== END 2024-02-12 18:30 | disposition home or self-care (01) ==
LOC: ED 13:47
DX: M94.0 Chondrocostal junction syndrome [Tietze] (principal); R07.81 Pleurodynia
CPT/HCPCS: 36415; 71046; 80053; 83690; 84484; 85025; 93005; 94640; 99283; A9270